=== PATIENT | male | born 1990 | race Caucasian/White ===

== ENCOUNTER 2024-09-23 10:57 | Inpatient (IN) | payer BC, SELFPAY ==
[2024-09-23] VITALS (24 sets, daily range): BP systolic 82–139; BP diastolic 50–93; PULSE 82–134; RESP 16–34; TEMP 36.8–37.6; O2SAT 92–100; BMI 25.1
--- NOTE | 2024-09-23 | ECHO_ITS ---
Patient Info Name: Kevin Dudley Age: 34 years : 1990 Gender: Male Ht: 72 in Wt: 187 lbs BSA: 2.08 m2 HR: 119 bpm BP: 120 / 84 mmHg Technical Quality: Fair Exam Date: 09/23/2024 4:37 PM Exam Location: Echo Lab Patient Status: Inpatient Admit Date: 09/23/2024 Staff Ordering Physician: Caron Jeronimo APRN [employer] Artisan: Stephanie Staples RDCS Attending Provider: Demarco Cordova MD Referring Physician: Phani ODOM; Exam Type: CA echo doppler color flow Study Info Indications I50.9 - Heart failure, unspecified Complete two-dimensional, color flow and Doppler transthoracic echocardiogram is performed. Summary 1. Technically difficult study with limited views. 2. Left ventricular chamber dimension is normal. 3. Left ventricular systolic function is normal, estimated at 50-55%. 4. Right ventricular systolic function is normal. 5. There is mild mitral valve regurgitation. 6. There is mild tricuspid valve regurgitation. 7. There is small posterior pericardial effusion. Left Ventricle Left ventricular chamber dimension is normal. Left ventricular systolic function is normal, estimated at 50-55%. There is no increased left ventricular wall thickness. Left ventricular septal wall motion is abnormal with septal motion related to bundle branch block. The left ventricular diastolic function is abnormal. Right Ventricle Right ventricular chamber dimension is normal. Right ventricular systolic function is normal. Left Atria Left atrial chamber dimension is normal. Right Atria Right atrial chamber dimension is normal. Atrial Septum Intact interatrial septum visualized by color flow imaging. Aortic Valve The aortic valve is not well visualized. There is no aortic valve stenosis. There is no aortic valve regurgitation. Pulmonic Valve The pulmonic valve is not well visualized. There is trace pulmonic regurgitation. Mitral Valve There is mild mitral valve regurgitation. Tricuspid Valve There is mild tricuspid valve regurgitation. Pericardium/Pleural There is small posterior pericardial effusion. Inferior Vena Cava Normal inferior vena cava with >50% collapse upon inspiration consistent with normal right atrial pressure, 3 mmHg. Aorta The aortic root size at the sinus of Valsalva is normal. Left Ventricular Outflow Tract Name Value Normal LVOT 2D LVOT Diameter 2.0 cm LVOT Doppler LVOT Peak Gradient 5 mmHg LVOT Mean Gradient 3 mmHg LVOT VTI 16 cm LVOT VTI/AV VTI Ratio 1.0 LVOT Stroke Volume 50 ml LVOT CO 5.1 l/min LVOT CI 2.5 l/min/m2 Pulmonic Valve Name Value Normal PV Doppler PV Peak Gradient 5 mmHg PV Regurgitation Doppler KS Peak End Diastolic Velocity 172 cm/s Mitral Valve Name Value Normal MV Doppler MV Decel [place] 678 cm/s2 MV PHT 36 ms MV Area (PHT) 6.1 cm2 4.0-5.0 MV Diastolic Function MV E Peak Velocity 84 cm/s MV A Peak Velocity 46 cm/s MV E/A 1.8 MV Decel Time 124 ms Tricuspid Valve Name Value Normal TV Regurgitation Doppler TR Peak Velocity 334 cm/s TR Peak Gradient 26 mmHg Estimated PAP/RSVP RA Pressure 3 mmHg <=5 PA Systolic Pressure 48 mmHg <36 RV Systolic Pressure 48 mmHg <36 Aorta Name Value Normal Ascending Aorta Ao Root Diameter (MM) 2.4 cm Ao Root Diam Index (MM) 1.1 cm/m2 Aortic Valve Name Value Normal AV Doppler AV Peak Velocity 123 cm/s AV Peak Gradient 6 mmHg AV Mean Gradient 3 mmHg AV VTI 17 cm AV Area (Cont Eq VTI) 3.0 cm2 >=3.0 AV Area (Cont Eq Madi) 2.9 cm2 AV Regurgitation 2D LVOT Area 3.1 cm2 Ventricles Name Value Normal LV Dimensions 2D/MM IVS Diastolic Thickness (2D) 0.8 cm 0.6-1.0 IVS Diastole Thickness (MM) 0.7 cm 0.6-1.0 LVID Diastole (2D) 4.6 cm 4.2-5.8 LVID Diastole (MM) 5.8 cm 4.2-5.8 LVIW Diastolic Thickness (2D) 0.9 cm 0.6-1.0 LVIW Diastolic Thickness (MM) 0.8 cm 0.6-1.0 LVID Systole (2D) 2.7 cm 2.5-4.0 LVID Systole (MM) 4.5 cm 2.5-4.0 LVOT Diameter 2.0 cm LV Mass (2D Cubed) 124.68 g 88.00-224.00 LV Mass Index (2D Cubed) 60 g/m2 49-115 Relative Wall Thickness (2D) 0.37 LV Mass (MM Cubed) 167.90 g 88.00-224.00 LV Mass Index (MM Cubed) 81 g/m2 49-115 Relative Wall Thickness (MM) 0.29 LV Fractional Shortening/Ejection Fraction 2D/MM LV Fractional Shortening (2D) 42 % 25-43 LV Fractional Shortening (MM) 22 % 25-43 LV EF (MM Teicholz) 44 % 52-72 LV EF (2D Teicholz) 73 % 52-72 LV Diastolic Volume (4C MOD) 108 ml LV EF (4C MOD) 57 % LV Diastolic Volume (2C MOD) 74 ml LV EF (2C MOD) 55 % LV Diastolic Volume (BP MOD) 92 ml 62-150 LV Diastolic Volume Index (BP MOD) 44 ml/m2 34-74 LV Systolic Volume (BP MOD) 41 ml 21-61 LV Systolic Volume Index (BP MOD) 19 ml/m2 11-31 LV EF (BP MOD) 56 % 52-72 LV Diastolic Length (4C) 8.9 cm LV Systolic Length (4C) 7.3 cm LV Stroke Volume (4C MOD) 62 ml Atria Name Value Normal LA Dimensions LA Dimension (MM) 3.9 cm 3.0-4.1 LA Volume (4C A-L) 36 ml LA Volume (BP A-L) 41 ml RA Dimensions RA Area (4C) 15.4 cm2 <=18.0 Report Signatures
--- NOTE | ~2024-09-23 | CT_ITS ---
EXAMINATION: CT abdomen w con DATE: 09/24/2024 13:33 INDICATION: Abdominal fluid collection. TECHNIQUE: Computed tomography (CT) of the abdomen was performed with 100 mL Omnipaque 350 intravenou s contrast. Automated exposure control and iterative reconstruction technique were employed. The dose -length product was 806.45 mGy-cm. COMPARISON: Chest CT 09/23/2024 FINDINGS: The visualized portions of the lung bases demonstrate moderate-sized pleural effusions and dependent atelectasis. There are groundglass opacities in left lower lobe and lingula. The heart size is normal. No pericardial effusion. The liver and spleen are normal. The gallbladder is normal in si ze. There is hypoenhancement of the tail of the pancreas. The adrenal glands and kidneys are normal. There are no dilated loops of bowel. There are extensive rim-enhancing collections in the retroperito neum and mesentery extending into the left paracardial fat. There is a moderate volume of ascites wit h peritoneal thickening and enhancement. There are changes of vertebroplasty at L1 and L3. There are changes of anterior fusion procedures at L2-L3 and L5-S1. There are changes of posterior fusion proce dure from L2 to at least L5. IMPRESSION: 1. 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 2. Moderate-sized pleural effusions. 3. Groundglass opacities in left lower lobe and lingula, consistent with pneumonia versus focal pulmo nary edema. Reviewed, dictated and finalized at location A. SKIMMER IMPRESSION: 1. 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 2. Moderate-sized pleural effusions. 3. Groundglass opacities in left lower lobe and lingula, consistent with pneumo rahel versus focal pulmonary edema.
--- NOTE | ~2024-09-23 | XR_ITS ---
EXAMINATION: [id number] DATE: 09/24/2024 10:31 INDICATION: Left pleural effusion status post thoracentesis. TECHNIQUE: A single frontal view of the chest was obtained. COMPARISON: Chest single view at 7:29 AM, chest CT 09/23/2024 FINDINGS: There is a small left pleural effusion. There are airspace opacities in the mid and lower l jacob zones. No pneumothorax. The heart size is normal. IMPRESSION: 1. Small left pleural effusion with improvement status post thoracentesis. 2. Airspace opacities in the mid and lower lung zones with improvement on the left, consistent with a telectasis versus pneumonia. Reviewed, dictated and finalized at location A. NDER WIND UP HELPER IMPRESSION: 1. Small left pleural effusion with improvement status post thoracentesis. 2. Airspace opacities in the mid and lower lung zones with improvement on the l eft, consistent with atelectasis versus pneumonia.
--- NOTE | ~2024-09-23 | XR_ITS ---
XR chest 1V portable Ordering provider: Opal Lowery MD History: 34 years Male with . low o2 sats, hx recent intubation/trach . Comparison: None. FINDINGS: MEDIASTINUM: The cardiac silhouette is slightly enlarged. Congestive alicia. LUNGS: No pneumothorax. Opacification in the left lower lobe suggestive of atelectasis versus pneumon ia with pleural effusion. Minimal opacification the right lower lobe. Bilateral interstitial thickeni ng. OTHER: No free air under the diaphragm. IMPRESSION: Cardiomegaly with cardiac decompensation and pulmonary edema. Bibasilar opacification suggestive of a telectasis versus pneumonia with left pleural effusion Reviewed, dictated and finalized at location A. N'S SOCCER COACH IMPRESSION: Cardiomegaly with cardiac decompensation and pulmonary edema. Bibasilar opacifi cation suggestive of atelectasis versus pneumonia with left pleural effusion
--- NOTE | ~2024-09-23 | US_ITS ---
EXAMINATION: US thoracentesis DATE: 09/24/2024 10:20 INDICATION: pleural effusion TECHNIQUE: The procedure and its risks, benefits, and alternatives were discussed with the patient. T he patient understood the risks and agreed to proceed. The skin was prepped and draped in sterile fas hion. 1% lidocaine was used for local anesthesia. Under ultrasound guidance, a 5 Fr catheter with tro dae was advanced into the left pleural effusion. Fluid was aspirated. The catheter was removed, and a dressing was applied. There were no immediate complications. FINDINGS: Ultrasound images demonstrate a left pleural effusion and the catheter within the fluid. IMPRESSION: 1. Successful ultrasound-guided thoracentesis yielding 900 mL of ely-colored fluid. Reviewed, dictated and finalized at location A. ENT SERVICES ADVISOR
--- NOTE | ~2024-09-23 | CT_ITS ---
Clinical Indication: Hypoxia, shortness of breath CT Scan of the Chest with Contrast: Technique: Contiguous sections were acquired throughout the chest after intravenous administration of 100 cc of Omnipaque 350. Dose reduction technique was used on this scan by utilizing automated expos ure control and iterative reconstruction technique. The dose-length product (DLP) was 438.94 mGy-cm. Findings: There is no evidence of any significant mediastinal, hilar or axillary lymphadenopathy. There is no f illing defect in the pulmonary arterial tree to suggest pulmonary embolus. There is no evidence of ao rtic dissection or aneurysm. No pericardial effusion. Probable epicardial cyst at the right inferior epicardial region. There are large bilateral pleural effusions, left greater than right. There is essentially complete b ilateral lower lobe atelectasis, as well as partial left upper lobe atelectasis and minimal dependent right upper lobe atelectatic change. There is focal groundglass opacity in the aerated anteromedial left upper lobe. Images through the upper abdomen reveal extensive heterogeneous fluid and infiltration in the mesente ry in the left upper quadrant and visualized upper abdomen.. Impression: No evidence of pulmonary embolus, aortic dissection, or aortic aneurysm. Large bilateral pleural effusions with extensive bilateral atelectasis, especially the lower lobes, a s detailed above. Extensive heterogeneous fluid in the upper abdomen, especially left upper quadrant, with extensive in filtration of the mesentery. Etiology is unclear, and is incompletely imaged on the current exam. Magdalene gnostic considerations could include severe pancreatitis versus other etiologies for peritoneal infla mmation and fluid. Carcinomatosis/neoplasm is also within the differential diagnosis. Correlate with any relevant clinical history an prior workup. Dedicated abdominal pelvic CT scan with contrast shoul d be strongly considered to further evaluate. Reviewed, dictated and finalized at [facility]. REGATIONAL CARE PASTOR Impression: No evidence of pulmonary embolus, aortic dissection, or aortic aneurysm. Large bilateral pleural effusions with extensive bilateral atelectasis, especia lly the lower lobes, as detailed above. Extensive heterogeneous fluid in the upper abdomen, especially left upper quadr ant, with extensive infiltration of the mesentery. Etiology is unclear, and is incompletely imaged on the current exam. Diagnostic considerations could includ e severe pancreatitis versus other etiologies for peritoneal inflammation and f luid. Carcinomatosis/neoplasm is also within the differential diagnosis. Correl ate with any relevant clinical history an prior workup. Dedicated abdominal pel mason CT scan with contrast should be strongly considered to further evaluate.
--- NOTE | ~2024-09-23 | XR_ITS ---
EXAMINATION: XR chest 1V portable DATE: 09/24/2024 07:46 INDICATION: Shortness of breath. TECHNIQUE: A single frontal view of the chest was obtained. COMPARISON: Chest single view 09/23/2024, chest CT 09/23/2024 FINDINGS: There is a large left pleural effusion. There are airspace opacities in right mid and lower lung zones and left lung. No pneumothorax. The heart size is normal. IMPRESSION: 1. Stable large left pleural effusion. 2. Stable airspace opacities in right mid and lower lung zones and left lung, consistent with atelect asis versus pneumonia. Reviewed, dictated and finalized at location A. ING SALES CONSULTANT IMPRESSION: 1. Stable large left pleural effusion. 2. Stable airspace opacities in right mid and lower lung zones and left lung, c onsistent with atelectasis versus pneumonia.
--- NOTE | 2024-09-23 11:15 | PC.NURSE ---
PT IS DECLINING TO HAVE ANY ADDITIONAL PROCEDURES COMPLETED UNTIL PHYSICIAN EXAM. IS OK WITH CXR AT THIS TIME.
--- NOTE | 2024-09-23 12:01 | ED_ITS ---
HPI - General Adult General Chief complaint: Unspecified Stated complaint: r/o PE Time Seen by Provider: 09/23/24 11:45 Source: patient, family and EMS Mode of arrival: EMS ([facility]) History of Present Illness HPI narrative: Patient presents with hypoxia appreciated this morning during vital signs. Facility is concerned for PE. Patient recently (5 days ago) admitted there for rehab. He has been in the hospital since June by report with history of necrotizing pancreatitis, encephalopathy, s/p trach placement and reversal/removal, and acute renal failure. Extubated 2 weeks ago. He denies any chest pain or shortness of breath, states he thinks everyone is making a big deal out of nothing. No fever, no cough. Denies edema. Not on anticoagulation per review of rehabilitation documentation. Related Data Home Medications Medication Instructions Recorded Confirmed acetaminophen 325 mg tablet 650 mg PO Q6H PRN Fever or Pain 09/18/24 09/23/24 (1-4) clonidine HCl 0.1 mg tablet 0.1 mg PO Q12H 09/18/24 09/23/24 folic acid 1 mg tablet 1 mg PO DAILY 09/18/24 09/23/24 hydroxyzine HCl 10 mg tablet 12.5 mg PO TID PRN Anxiety 09/18/24 09/23/24 insulin lispro 100 unit/mL See Protocol subcut USEASDIRECTD 09/18/24 09/23/24 subcutaneous solution lipase 10,500-protease 2 cap PO AC 09/18/24 09/23/24 35,500-amylase 61,500 unit capsule,delayed rel (Pancreaze) melatonin 3 mg tablet 9 mg PO HS PRN Insomnia 09/18/24 09/23/24 metformin 500 mg tablet 500 mg PO BIDWM 09/18/24 09/23/24 metoprolol tartrate 37.5 mg tablet 37.5 mg PO Q12H 09/18/24 09/23/24 oxycodone 5 mg tablet 5 mg PO Q4H PRN Pain (5-10) 09/18/24 09/23/24 pantoprazole 40 mg tablet,delayed 40 mg PO DAILY 09/18/24 09/23/24 release sennosides 8.6 mg tablet 8.6 mg PO DAILY 09/18/24 09/23/24 thiamine HCl (vitamin B1) 100 mg 100 mg PO DAILY 09/18/24 09/23/24 tablet enoxaparin 40 mg/0.4 mL 40 mg subcut DAILY 09/23/24 09/23/24 subcutaneous syringe gabapentin 300 mg capsule 300 mg PO TID 09/23/24 09/23/24 Allergies Allergy/AdvReac Type Severity Reaction Status Date / Time No Known Allergies Allergy Verified 09/23/24 18:52 [facility] Past Medical History Medical History (Updated 09/23/24 @ 21:09 by Opal Lowery MD) Necrotizing pancreatitis Social History Social History (Updated 09/23/24 @ 12:09 by Opal Lowery MD) Smoking status: Never smoker Alcohol intake: former Drinks per week: 7 Substance use: current Substance use type: prescription drug Other substance usage details: prescribed opiates Last use: last drink in June Do You Feel Safe in your Home?: Yes Lack of Transportation: No Lack of Food: Never True Current Housing: I Have Housing Concerned About Future Housing: No Difficulty Paying Gas/Electric Bills: No Difficulty Paying for Meds: No Currently Unemployed: No Education: High School Diploma/GED Difficulty w/ Childcare or Family Care: No Additional living arrangements comments: Currently at [facility] Spiritual care concerns: No Exam Narrative: GENERAL: Well-appearing, well-nourished, and in no acute distress. HEAD: Normocephalic, atraumatic. EYES: Non injected, non icteric ENT: Nares clear, no rhinorrhea or epistaxis. NECK: Supple. Trach scar. CHEST: Speaking in full sentences. No respiratory distress though tachypneic. Lungs clear to auscultation bilaterally. HEART: Regular rate and rhythm. ABDOMEN: Soft, nondistended. EXTREMITIES: Normal range of motion. No lower extremity edema. SKIN: Warm, dry, no rash. NEURO: No focal deficits. Alert and oriented x3. PSYCH: Normal mood and affect. Course Vital Signs Vital signs: Vital Signs Temperature 98.2 F 09/23/24 10:58 Pulse Rate 82 09/23/24 10:58 Respiratory Rate 28 H 09/23/24 10:58 Blood Pressure 82/50 L 09/23/24 10:58 Pulse Oximetry 92 09/23/24 10:58 Oxygen Delivery Room Air 09/23/24 10:58 Temperature 98.8 F 09/23/24 19:58 Pulse Rate 131 H 09/23/24 20:00 Respiratory Rate 18 09/23/24 19:58 Blood Pressure 134/89 09/23/24 19:58 Pulse Oximetry 97 09/23/24 20:00 Oxygen Delivery Nasal Cannula 09/23/24 20:00 Oxygen Flow Rate 2 09/23/24 20:00 Medical Decision Making MDM Narrative Medical decision making narrative: 34yo male with history necrotizing pancreatitis, encephalopathy, former trach dependent s/p reversal, and acute renal failure presents with hypoxia. Facility concerned for PE. In the emergency department he is afebrile with vital signs notable for hypotension, hypoxia which responded to application of nasal cannula at 2 l iters/minute, and tachypnea. Hypotension also improves. Lactic acid normal. Heart failure evident on labs and CXR and confirmed on CT which also shows b/l pleura effusions. No PE. 1 dose Lasix ordered. Patient to be admitted. Discussed findings with patient and family at bedside. Noted that patient likely to require diuresis and possible thoracentesis. He remains hemodynamically stable on nasal cannula, saturating appropriately with improved rate of breathing. Discussed admission with APPLIED BIOLOGY PROFESSOR Hospitalist Caron. Differential Diagnosis Differential Diagnosis: effusion as sequelae of pancreatitis, pulmonary embolism, acute heart failure, ACS, acute viral syndrome; pneumonia Vital Signs Vital Signs: Vital Signs Temperature 98.2 F 09/23/24 10:58 Pulse Rate 82 09/23/24 10:58 Respiratory Rate 28 H 09/23/24 10:58 Blood Pressure 82/50 L 09/23/24 10:58 Pulse Oximetry 92 09/23/24 10:58 Oxygen Delivery Room Air 09/23/24 10:58 Temperature 98.8 F 09/23/24 19:58 Pulse Rate 131 H 09/23/24 20:00 Respiratory Rate 18 09/23/24 19:58 Blood Pressure 134/89 09/23/24 19:58 Pulse Oximetry 97 09/23/24 20:00 Oxygen Delivery Nasal Cannula 09/23/24 20:00 Oxygen Flow Rate 2 09/23/24 20:00 Lab Data Lab results reviewed: Yes I reviewed the patient's lab results. Lab results narrative: Leukocytosis, macrocytic anemia, thrombocytosis; all have been previously seen in our chronic/stable. Alkaline phosphatase elevation, hypoalbuminemia 09/23/24 12:25 09/23/24 12:25 Labs: Lab Results 09/23/24 09/23/24 09/23/24 Range/Units 12:22 12:23 12:24 WBC (4.5-10.0) K/mm3 RBC (4.6-6.20) M/mm3 Hgb (14.0-18.0) g/dL Hct (42.0-52.0) % MCV (80-100) fl MCH (26-34) pg MCHC (32-36) g/dl RDW (11.5-14.5) % Plt Count (150-375) k/mm3 MPV (7.4-10.4) fl Immature Gran % (Auto) (0-0.5) % Neut % (Auto) (45.5-73.1) % Lymph % (Auto) (18.3-44.2) % Fountain % (Auto) (2.6-8.5) % Eos % (Auto) (0-4.4) % Baso % (Auto) (0.2-1.2) % Lymph # (Auto) (0.9-3.2) K/mm3 Fountain # (Auto) (0.1-0.6) K/mm3 Eos # (Auto) (0-0.3) K/mm3 Baso # (Auto) (0.0-0.1) K/mm3 Abs Immat Gran (auto) (0.00-0.031) K/mm3 Absolute Neuts (auto) (1.3-6.7) K/mm3 Absolute Nucleated RBC (0.0-0.012) K/mm3 Nucleated RBC % (0.0-0.2) % PT 14.4 (11.1-14.7) Seconds INR 1.1 APTT 31.8 (22.3-36.8) Seconds Sodium (137-145) mmol/L Potassium (3.4-5.0) mmol/L Chloride (98-107) mmol/L Carbon Dioxide (22-30) mmol/L Anion Gap (4-12) mmol/L BUN (9-20) mg/dL Creatinine (0.7-1.3) mg/dL Estim Creat Clear Calc ml/min Estimated GFR (59 - ) Glucose (65-110) mg/dL Lactic Acid (0.7-2.0) mmol/L Calcium (8.4-10.2) mg/dL Total Bilirubin (0.2-1.3) mg/dL AST (17-59) U/L ALT (6-50) U/L Alkaline Phosphatase (38-126) U/L Troponin I (0.000-0.034) ng/mL NT-Pro-B Natriuret Pep (19.9-100) pg/mL Total Protein (6.3-8.2) g/dL Albumin (3.5-5.1) g/dL Lipase 28 (23-300) U/L Influenza A (RT-PCR) Negative (Negative) Influenza B (RT-PCR) Negative (Negative) RSV (RT-PCR) Negative (Negative) SARS-CoV-2 RNA (RT-PCR) Negative (Negative) 09/23/24 09/23/24 Range/Units 12:25 12:26 WBC 14.2 H (4.5-10.0) K/mm3 RBC 2.72 L (4.6-6.20) M/mm3 Hgb 8.3 L (14.0-18.0) g/dL Hct 27.4 L (42.0-52.0) % MCV 100.7 H (80-100) fl MCH 30.5 (26-34) pg MCHC 30.3 L (32-36) g/dl RDW 16.0 H (11.5-14.5) % Plt Count 578 H (150-375) k/mm3 MPV 9.3 (7.4-10.4) fl Immature Gran % (Auto) 2.2 H (0-0.5) % Neut % (Auto) 72.8 (45.5-73.1) % Lymph % (Auto) 12.2 L (18.3-44.2) % Fountain % (Auto) 9.1 H (2.6-8.5) % Eos % (Auto) 2.4 (0-4.4) % Baso % (Auto) 1.3 H (0.2-1.2) % Lymph # (Auto) 1.73 (0.9-3.2) K/mm3 Fountain # (Auto) 1.3 H (0.1-0.6) K/mm3 Eos # (Auto) 0.3 (0-0.3) K/mm3 Baso # (Auto) 0.2 H (0.0-0.1) K/mm3 Abs Immat Gran (auto) 0.31 H (0.00-0.031) K/mm3 Absolute Neuts (auto) 10.3 H (1.3-6.7) K/mm3 Absolute Nucleated RBC 0.000 (0.0-0.012) K/mm3 Nucleated RBC % 0.0 (0.0-0.2) % PT (11.1-14.7) Seconds INR APTT (22.3-36.8) Seconds Sodium 138 (137-145) mmol/L Potassium 4.2 (3.4-5.0) mmol/L Chloride 97 L (98-107) mmol/L Carbon Dioxide 36 H (22-30) mmol/L Anion Gap 5 (4-12) mmol/L BUN 8 L (9-20) mg/dL Creatinine 0.70 (0.7-1.3) mg/dL Estim Creat Clear Calc 138 ml/min Estimated GFR > 60 (59 - ) Glucose 90 (65-110) mg/dL Lactic Acid 1.3 (0.7-2.0) mmol/L Calcium 9.4 (8.4-10.2) mg/dL Total Bilirubin 1.0 (0.2-1.3) mg/dL AST 24 (17-59) U/L ALT 35 (6-50) U/L Alkaline Phosphatase 229 H (38-126) U/L Troponin I < 0.012 (0.000-0.034) ng/mL NT-Pro-B Natriuret Pep 2300 H (19.9-100) pg/mL Total Protein 7.0 (6.3-8.2) g/dL Albumin 3.2 L (3.5-5.1) g/dL Lipase (23-300) U/L Influenza A (RT-PCR) (Negative) Influenza B (RT-PCR) (Negative) RSV (RT-PCR) (Negative) SARS-CoV-2 RNA (RT-PCR) (Negative) ABG Data ABG results: 09/23/24 12:06 Puncture Site Right radial ABG pH 7.321 L ABG pCO2 65.8 H* ABG pO2 89.2 ABG PO2/FiO2 Ratio 3.19 ABG HCO3 33.2 H ABG O2 Saturation 95.9 ABG O2 Content 12.6 L ABG Base Excess 5.9 A-a Gradient 32.8 Oxyhemoglobin 95.5 Total Hemoglobin 9.3 L O2 Delivery Device Nasal cannula O2 Liters/Min 2.0 FiO2 28 Attestation: I personally reviewed and interpreted this ABG as follows: Interpretation: respiratory acidosis with metabolic alkalosis Imaging Data Radiologist's impression: Impressions Chest X-Ray 09/23/24 11:41 IMPRESSION: Cardiomegaly with cardiac decompensation and pulmonary edema. Bibasilar opacification suggestive of atelectasis versus pneumonia with left pleural effusion Chest CTA 09/23/24 13:29 Impression: No evidence of pulmonary embolus, aortic dissection, or aortic aneurysm. Large bilateral pleural effusions with extensive bilateral atelectasis, especially the lower lobes, as detailed above. Extensive heterogeneous fluid in the upper abdomen, especially left upper quadrant, with extensive infiltration of the mesentery. Etiology is unclear, and is incompletely imaged on the current exam. Diagnostic considerations could include severe pancreatitis versus other etiologies for peritoneal inflammation and fluid. Carcinomatosis/neoplasm is also within the differential diagnosis. Correlate with any relevant clinical history an prior workup. Dedicated abdominal pelvic CT scan with contrast should be strongly considered to further evaluate. ECG Data EKG #1: Attestation: I personally reviewed and interpreted this ECG as follows: ECG completion date: 09/23/24 ECG completion time: 12:14 Prior ECG tracings: available for review (no prior in EMR but one dated 09/18/24 in chart: Sinus tachycardia at 120 beats per minute.) Interpretation: Sinus tachycardia at a rate of 104 beats per minute. KS interval 177. QRS 88. QT/QTC 313/373. Good R-wave progression across the precordial leads. No T-wave inversions. Discharge Plan Discharge Clinical Impression: Bilateral pleural effusion, Hypoxia, Leukocytosis, Anemia, macrocytic, Thrombocytosis, Alkaline phosphatase elevation, Hypoalbuminemia, Acute heart failure Patient Disposition: Still a Patient Condition: Stable
--- NOTE | 2024-09-23 12:02 | ECG_ITS ---
Test Date: 2024-09-23 12:14:57 Measurements Intervals [place] Rate: 104 P: 35 ID: [id number] QRS: 43 QRSD: 88 T: 40 QT: 313 QTc: 412 Interpretive Statements SINUS TACHYCARDIA POSSIBLE LEFT ATRIAL ENLARGEMENT NONSPECIFIC T-WAVE ABNORMALITY- HIGH LATERAL LEADS BASELINE ARTIFACT- I, III, AVL, V6 BORDERLINE ECG No previous ECG available for comparison Electronically Signed On 09-23-2024 13:08:32 [facility] by Alejandro Colin D.O.
[2024-09-23 12:33] LABS: Basophils Absolute Auto 0.2 K/mm3 (0.0-0.1); Basophils Percent Auto 1.3 % (0.2-1.2); Eosinophils Absolute Auto 0.3 K/mm3 (0-0.3); Eosinophils Percent Auto 2.4 % (0-4.4); Hematocrit 27.4 % (42.0-52.0); Hemoglobin 8.3 g/dL (14.0-18.0); Immature Granulocyte Absolute 0.31 K/mm3 (0.00-0.031); Immature Granulocyte Percent A 2.2 % (0-0.5); Lymphocytes Absolute Auto 1.73 K/mm3 (0.9-3.2); Lymphocytes Percent Auto 12.2 % (18.3-44.2); Mean Corpuscular HGB Conc 30.3 g/dl (32-36); Mean Corpuscular Hemoglobin 30.5 pg (26-34); Mean Corpuscular Volume 100.7 fl (80-100); Mean Platelet Volume 9.3 fl (7.4-10.4); Monocytes Absolute Auto 1.3 K/mm3 (0.1-0.6); Monocytes Percent Auto 9.1 % (2.6-8.5); Neutrophils Absolute Auto 10.3 K/mm3 (1.3-6.7); Neutrophils Percent Auto 72.8 % (45.5-73.1); Platelet Count Result 578 k/mm3 (150-375); Red Blood Count 2.72 M/mm3 (4.6-6.20); White Blood Count 14.2 K/mm3 (4.5-10.0)
[2024-09-23 12:42] LABS: Alanine Aminotransferase 35 U/L (6-50); Albumin Level 3.2 g/dL (3.5-5.1); Alkaline Phosphatase 229 U/L (38-126); Anion Gap 5 mmol/L (4-12); Aspartate Amino Transferase 24 U/L (17-59); Blood Urea Nitrogen 8 mg/dL (9-20); Calcium 9.4 mg/dL (8.4-10.2); Carbon Dioxide 36 mmol/L (22-30); Chloride 97 mmol/L (98-107); Estimated CRCL calculation 138 ml/min; Estimated Glomerular Filt Rate > 60; Glucose 90 mg/dL (65-110); Potassium 4.2 mmol/L (3.4-5.0); Sodium 138 mmol/L (137-145)
[2024-09-23 12:43] LABS: Alveolar/Arterial O2 Gradient 32.8 mmHg; Base Excess ABG 5.9 mEq/l (+/-2.0); Fractional Inspired Oxygen 28 %; HCO3 ABG 33.2 mEq/l (22.0-26.0); Oxygen Content ABG 12.6 %vol (16.0-22.0); Oxygen Saturation ABG 95.9 % (95.0-100.0); Oxyhemoglobin 95.5 % THb (90.0-100.0); PO2 ABG 89.2 mmHg (80.0-100.0); PO2 FiO2 Ratio Arterial Blood 3.19 %; Total Hemoglobin 9.3 g/dL (12.0-18.0); pH ABG 7.321 (7.350-7.450)
[2024-09-23 12:44] LABS: Lactic Acid Reflex 1.3 mmol/L (0.7-2.0)
[2024-09-23 12:45] LABS: Modified Allen's Test Pass; PCO2 ABG 65.8 mmHg (35.0-45.0); Site Drawn RIGHT RADIAL
[2024-09-23 12:46] LABS: Device NASAL CANNULA
[2024-09-23 12:46] LABS: INR 1.1; Partial Thromboplastin Time 31.8 Seconds (22.3-36.8); Prothrombin Time 14.4 Seconds (11.1-14.7)
[2024-09-23 12:51] LABS: NT Pro B Type Natriuretic Pept 2300 pg/mL (19.9-100)
[2024-09-23 12:54] LABS: Troponin I < 0.012 ng/mL (0.000-0.034)
[2024-09-23 13:10] LABS: Influenza A QL RT-PCR Negative (Negative); Influenza B QL RT-PCR Negative (Negative); RSV RNA, RT-PCR Negative (Negative); SARS-CoV-2 RNA PCR Negative (Negative)
[2024-09-23 14:03] LABS: Lipase 28 U/L (23-300)
--- NOTE | 2024-09-23 14:40 | PM.IMHP ---
H&P: HPI History of Present Illness Date/Time: 09/23/24 14:40 Chief Complaint: Hypoxia Narrative: 34-year-old male with history of alcohol abuse, seizures necrotizing pancreatitis sent in from acute rehab for hypoxia. Patient denies complaints of shortness of breath. Patient states that he has no complaints and that he was doing well at rehab however today when they took his vitals are within knows that he was hypoxic into the 80s and sent him to the emergency room for further evaluation. Leukocytosis at 14.2, hemoglobin 8.3, on ABG pCO2 is 65.8, bicarb 33.2, AST and ALT within normal limits, alkaline phosphate at 292, BNP at 2300, respiratory panel negative. CTA of the chest shows no pulmonary embolism, large bilateral pleural effusions left greater than right with extensive atelectasis. Chest x-ray shows cardiomegaly with cardiac decompensation and pulmonary edema. Patient given Lasix in the emergency room. Patient had a prolonged hospital stay for alcohol withdrawals and necrotizing pancreatitis. Patient was admitted on 07/12/2024 at [facility] for seizures related to alcohol withdrawals. On 2023 patient was transferred to [facility] for higher level of care. He came encephalopathic and was intubated on 07/15/2024, a tracheostomy placed on 07/25 and was decannulated on 09/04/2024. On 08/30/2024 the patient was found positive for C diff. During the hospital stay he did have acute kidney failure and had hemodialysis. He was discharged to [facility] on 09/18/2024. Review of Systems Review of Systems: 12 systems were reviewed and are negative except for as per HPI. [facility] Past Medical History Medical History (Updated 09/23/24 @ 21:09 by Opal Lowery MD) Necrotizing pancreatitis Social History Social History (Updated 09/23/24 @ 12:09 by Opal Lowery MD) Smoking status: Never smoker Alcohol intake: former Drinks per week: 7 Substance use: current Substance use type: prescription drug Other substance usage details: prescribed opiates Last use: last drink in June Do You Feel Safe in your Home?: Yes Lack of Transportation: No Lack of Food: Never True Current Housing: I Have Housing Concerned About Future Housing: No Difficulty Paying Gas/Electric Bills: No Difficulty Paying for Meds: No Currently Unemployed: No Education: High School Diploma/GED Difficulty w/ Childcare or Family Care: No Additional living arrangements comments: Currently at [facility] Spiritual care concerns: No Meds Home Medications and Allergies Home Medications Medication Instructions Recorded Confirmed Type acetaminophen 325 mg tablet 650 mg PO Q6H PRN Fever or Pain 09/18/24 09/23/24 History (1-4) clonidine HCl 0.1 mg tablet 0.1 mg PO Q12H 09/18/24 09/23/24 History folic acid 1 mg tablet 1 mg PO DAILY 09/18/24 09/23/24 History hydroxyzine HCl 10 mg tablet 12.5 mg PO TID PRN Anxiety 09/18/24 09/23/24 History insulin lispro 100 unit/mL See Protocol subcut USEASDIRECTD 09/18/24 09/23/24 History subcutaneous solution lipase 10,500-protease 2 cap PO AC 09/18/24 09/23/24 History 35,500-amylase 61,500 unit capsule,delayed rel (Pancreaze) melatonin 3 mg tablet 9 mg PO HS PRN Insomnia 09/18/24 09/23/24 History metformin 500 mg tablet 500 mg PO BIDWM 09/18/24 09/23/24 History metoprolol tartrate 37.5 mg tablet 37.5 mg PO Q12H 09/18/24 09/23/24 History oxycodone 5 mg tablet 5 mg PO Q4H PRN Pain (5-10) 09/18/24 09/23/24 History pantoprazole 40 mg tablet,delayed 40 mg PO DAILY 09/18/24 09/23/24 History release sennosides 8.6 mg tablet 8.6 mg PO DAILY 09/18/24 09/23/24 History thiamine HCl (vitamin B1) 100 mg 100 mg PO DAILY 09/18/24 09/23/24 History tablet enoxaparin 40 mg/0.4 mL 40 mg subcut DAILY 09/23/24 09/23/24 History subcutaneous syringe gabapentin 300 mg capsule 300 mg PO TID 09/23/24 09/23/24 History Allergies Allergy/AdvReac Type Severity Reaction Status Date / Time No Known Allergies Allergy Verified 09/23/24 18:52 Vital Signs Vital Signs - 24 hr 09/23/24 10:58 09/23/24 11:00 09/23/24 11:15 Temperature 98.2 F Pulse Rate 82 87 Respiratory Rate 28 H 30 H Blood Pressure 82/50 L 88/59 L Pulse Oximetry 92 92 Oxygen Delivery Room Air Room Air Oxygen Flow Rate 09/23/24 11:15 09/23/24 11:51 09/23/24 12:01 Temperature Pulse Rate 111 H 114 H Respiratory Rate 34 H 30 H Blood Pressure 108/72 109/73 Pulse Oximetry 100 100 100 Oxygen Delivery Nasal Cannula Oxygen Flow Rate 2 09/23/24 12:23 09/23/24 12:31 09/23/24 12:46 Temperature Pulse Rate 109 H 109 H 109 H Respiratory Rate 30 H 32 H 32 H Blood Pressure 107/69 111/70 108/83 Pulse Oximetry 100 100 99 Oxygen Delivery Oxygen Flow Rate 09/23/24 13:43 09/23/24 13:46 09/23/24 14:01 Temperature Pulse Rate 115 H 113 H 102 H Respiratory Rate 32 H 32 H 33 H Blood Pressure 109/81 107/76 112/83 Pulse Oximetry 98 99 98 Oxygen Delivery Oxygen Flow Rate Exam Narrative: General: well appearing, appears stated age. HEENT: normocephalic, atraumatic. Mucous membranes moist. EOMI, PERRLA, bilateral sclera anicteric, no conjunctival injection. Neck supple without JVD, lymphadenopathy, or bruit. Respiratory: Shallow, tachypneic clear,. No rales/rhonic/wheezes. Cardiovascular: Tachycardic Regular rate and rhythm, normal S1-S2 upon ascultation. No murmurs, rubs, or clicks. PMI is nondisplaced, capillary refill less than 3 second. Abdomen: Soft, round, no pulsatile masses, nondistended and nontender. No rebound, no guarding. No CVA tenderness, no hepatosplenomegaly. Bowel sounds present to all four quadrants. No high pitch or tinkling sounds, resonant to percussion. Extremities: No cyanosis, clubbing, or edema present. Pulses are palpable 2/2. Active ROM to all four extremities. Neuro: Alert and orientated x 4. PERRLA. Cranial nerves 2-12 intact without focal deficit. Skin: Warm, dry, and intact, without rash, erythema, or lesion. Psych: pleasant, cooperative, normal speech, normal affect, no hallucinations, no dysarthia H&P: Results Labs Labs: Short CBC 09/23/24 Range/Units 12:25 WBC 14.2 H (4.5-10.0) K/mm3 Hgb 8.3 L (14.0-18.0) g/dL Hct 27.4 L (42.0-52.0) % Plt Count 578 H (150-375) k/mm3 BMP 09/23/24 12:25 Sodium 138 Potassium 4.2 Chloride 97 L Carbon Dioxide 36 H BUN 8 L Creatinine 0.70 Glucose 90 Calcium 9.4 Cardiac Enzymes 09/23/24 Range/Units 12:25 Troponin I < 0.012 (0.000-0.034) ng/mL Liver Function 09/23/24 Range/Units 12:25 Total Bilirubin 1.0 (0.2-1.3) mg/dL AST 24 (17-59) U/L ALT 35 (6-50) U/L Alkaline Phosphatase 229 H (38-126) U/L Albumin 3.2 L (3.5-5.1) g/dL Assessment and Plan Assessment and plan (1) Bilateral pleural effusion: Code(s): J90 - Pleural effusion, not elsewhere classified Status: Acute Assessment and Plan: large bilateral pleural effusions, left greater than right. Ultrasound-guided thoracentesis tomorrow, patient received Lovenox at 10:00 a.m. and needs a 12 hour washout. NPO at midnight Okay for diet now (2) Acute heart failure: Code(s): I50.9 - Heart failure, unspecified Status: Acute Assessment and Plan: 40 IV Lasix x1 in ED Cardiology consult pending recommendations Echocardiogram pending Cardiomegaly on chest x-ray 1800 fluid restriction, and low-sodium diet (3) Hypoxia: Code(s): R09.02 - Hypoxemia Status: Acute Assessment and Plan: Secondary to above Wean oxygen as able (4) Leukocytosis: Code(s): D72.829 - Elevated white blood cell count, unspecified Status: Acute Assessment and Plan: Tachypneic and tachycardic -sepsis versus large pleural effusions Chest CT negative for pneumonia, no signs of soft tissue infection UA pending Blood cultures pending Lactic acid 2.2 No fluid bolus due to patient being fluid overloaded Tachypnea and tachycardia are most likely due to the large pleural effusions the patient has patient hard for him to breathe however he does meet sepsis protocol will start empiric antibiotics, no infectious source identified IV Zosyn for possible abdominal infection (5) Anemia, macrocytic: Code(s): D53.9 - Nutritional anemia, unspecified Status: Acute Assessment and Plan: Nutritional supplements ordered No signs of acute bleeding (6) Necrotizing pancreatitis: Code(s): K85.91 - Acute pancreatitis with uninfected necrosis, unspecified Status: Inactive Assessment and Plan: Improving Quality VTE Prophylaxis VTE prophylaxis: mechanical ordered and pharmacologic ordered Hospitalist [facility] Advance Care Plan I have confirmed that the patient's Advanced Care Plan is present, code status is documented, or surrogate decision maker is listed in patient medical record.: Yes
[2024-09-23] MEDS: FUROSEMIDE INJ 40 MG/4 ML VIAL IV PUSH (14:49)
--- NOTE | 2024-09-23 18:01 | ADMGEN ---
This patient, Kevin Dudley, was admitted to Medical Room 342-01. Patient/family oriented to hospital policies and general routines including ID bracelet, bed and alarms, visiting hours, pain management, procedures, bathroom and other care routines, personal items, smoking policy, room service/diet, and visiting hours. Information on how to activate the Rapid Response Team has been discussed. Patient/Family are encouraged to report perceived risks to care and to ask questions if they do not understand what they are told or what they should do.
--- NOTE | 2024-09-23 18:55 | PC.NURSE ---
pt on tele running sinus tach in the 120s/130s. admitting hospitalist Caron Jeronimo called and voicemail left.
--- NOTE | 2024-09-23 19:29 | PC.NURSE ---
Hospitalist Caron Jeronimo contacted and I reported my concerns of his tachycardia in 120/130s, shallow rapid respirations in the 30s, 99.1 temp, elevated WBC count.
[2024-09-23 20:27] LABS: Lactic Acid Reflex 2.2 mmol/L (0.7-2.0)
[2024-09-23] MEDS: PIPERACILLN/TAZ 3.375GM/NS50ML 3.375 GM/50 ML BAG IVPB (22:36)
[2024-09-23 23:10] LABS: Reflex Lactic Acid Yes or No Add Lactic
[2024-09-24] VITALS (21 sets, daily range): BP systolic 114–139; BP diastolic 80–99; PULSE 104–142; RESP 15–32; TEMP 36.6–38.3; O2SAT 90–100
[2024-09-24 00:14] LABS: Lactic Acid 1.9 mmol/L (0.7-2.0)
[2024-09-24 01:24] LABS: Glucose Point of Care 149 mg/dl (65-105)
[2024-09-24] MEDS: PIPERACILLN/TAZ 3.375GM/NS50ML 3.375 GM/50 ML BAG IVPB (04:54)
[2024-09-24 05:45] LABS: Glucose Point of Care 129 mg/dl (65-105)
[2024-09-24 05:50] LABS: Basophils Absolute Auto 0.2 K/mm3 (0.0-0.1); Eosinophils Absolute Auto 0.3 K/mm3 (0-0.3); Eosinophils Percent Auto 1.9 % (0-4.4); Hematocrit 28.7 % (42.0-52.0); Hemoglobin 8.8 g/dL (14.0-18.0); Immature Granulocyte Absolute 0.32 K/mm3 (0.00-0.031); Immature Granulocyte Percent A 2.2 % (0-0.5); Lymphocytes Absolute Auto 1.18 K/mm3 (0.9-3.2); Lymphocytes Percent Auto 8.2 % (18.3-44.2); Mean Corpuscular HGB Conc 30.7 g/dl (32-36); Mean Corpuscular Hemoglobin 30.4 pg (26-34); Mean Corpuscular Volume 99.3 fl (80-100); Mean Platelet Volume 8.9 fl (7.4-10.4); Monocytes Percent Auto 7.1 % (2.6-8.5); Neutrophils Absolute Auto 11.5 K/mm3 (1.3-6.7); Neutrophils Percent Auto 79.6 % (45.5-73.1); Platelet Count Result 518 k/mm3 (150-375); Red Blood Count 2.89 M/mm3 (4.6-6.20); Red Cell Distribution Width 15.6 % (11.5-14.5); White Blood Count 14.4 K/mm3 (4.5-10.0)
[2024-09-24 06:01] LABS: Alanine Aminotransferase 34 U/L (6-50); Albumin Level 3.2 g/dL (3.5-5.1); Alkaline Phosphatase 237 U/L (38-126); Anion Gap 5 mmol/L (4-12); Aspartate Amino Transferase 25 U/L (17-59); Blood Urea Nitrogen 7 mg/dL (9-20); Calcium 9.1 mg/dL (8.4-10.2); Carbon Dioxide 38 mmol/L (22-30); Chloride 94 mmol/L (98-107); Estimated CRCL calculation 122 ml/min; Estimated Glomerular Filt Rate > 60; Glucose 129 mg/dL (65-110); Potassium 3.7 mmol/L (3.4-5.0); Sodium 137 mmol/L (137-145)
[2024-09-24 06:06] LABS: INR 1.1; Prothrombin Time 14.2 Seconds (11.1-14.7)
[2024-09-24 06:08] LABS: Partial Thromboplastin Time 30.7 Seconds (22.3-36.8)
[2024-09-24] MEDS: ACETAMINOPHEN 325 MG TABLET 650 MG PO ×2 (06:25→16:27)
--- NOTE | 2024-09-24 07:18 | ECG_ITS ---
Test Date: 2024-09-24 07:28:42 Measurements Intervals [place] Rate: 126 P: 49 CT: 175 QRS: 49 QRSD: 98 T: 53 QT: 400 QTc: 580 Interpretive Statements SINUS TACHYCARDIA NONSPECIFIC T-WAVE ABNORMALITY- DIFFUSE LEADS ABNORMAL ECG Compared to ECG 09/23/2024 12:14:57 HEART RATE HAS INCREASED Electronically Signed On 09-24-2024 07:53:21 CUPOLA MELTING SUPERVISOR by Alejandro Colin D.O.
[2024-09-24] MEDS: FUROSEMIDE INJ 40 MG/4 ML VIAL IV PUSH (07:37)
[2024-09-24 07:38] LABS: Alveolar/Arterial O2 Gradient 39.8 mmHg; Base Excess ABG 10.6 mEq/l (+/-2.0); Fractional Inspired Oxygen 28 %; HCO3 ABG 37.9 mEq/l (22.0-26.0); Oxygen Content ABG 12.4 %vol (16.0-22.0); Oxygen Saturation ABG 94.4 % (95.0-100.0); Oxyhemoglobin 94.7 % THb (90.0-100.0); PO2 ABG 77.7 mmHg (80.0-100.0); PO2 FiO2 Ratio Arterial Blood 2.77 %; Total Hemoglobin 9.2 g/dL (12.0-18.0); pH ABG 7.354 (7.350-7.450)
[2024-09-24 07:41] LABS: Lactic Acid Reflex 1.2 mmol/L (0.7-2.0)
[2024-09-24 07:41] LABS: Device NON-INVASIVE VENT; Modified Allen's Test Pass; Site Drawn RIGHT RADIAL
--- NOTE | 2024-09-24 07:41 | PM.IMPN ---
Progress Note: A&P Assessment and Plan (1) Sepsis: Code(s): A41.9 - Sepsis, unspecified organism Status: Acute Assessment and Plan: Meets SIRS criteria: HR, RR, lactic, WBC - lactic acid: 2.2 > 1.9 > 1.2 - Patient did not receive sepsis bolus on admission, likely due to severe effusion. - He remains tachycardic into the 130s likely due to ongoing infection, given albumin 25% x1. - suspected source: pneumonia vs necrotizing pancreatitis - blood cultures drawn on 09/23: pending - Antibiotics: vancomycin, cefepime, flagyl - UA non concerning for infection - CXR 09/23: Cardiomegaly with cardiac decompensation and pulmonary edema. Bibasilar opacification suggestive of atelectasis versus pneumonia with left pleural effusion - Chest CTA 09/23: No evidence of pulmonary embolus, aortic dissection, or aortic aneurysm. Large bilateral pleural effusions with extensive bilateral atelectasis, especially the lower lobes, as detailed above. Extensive heterogeneous fluid in the upper abdomen, especially left upper quadrant, with extensive infiltration of the mesentery. Etiology is unclear, and is incompletely imaged on the current exam. Diagnostic considerations could include severe pancreatitis versus other etiologies for peritoneal inflammation and fluid. Carcinomatosis/neoplasm is also within the differential diagnosis. - Abdomen/pelvis CT 1. 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 2. Moderate-sized pleural effusions. 3. Groundglass opacities in left lower lobe and lingula, consistent with pneumonia versus focal pulmonary edema. 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 He was transferred from [facility] to [facility]. He was treated for necrotizing pancreatitis and peripancreatic fluid collection, septic shock (septicemia) requiring broad spectrum antibiotics, progressive encephalopathy requiring intubation for respiratory failure on 07/15/24. A tracheostomy was placed 07/25/24. He was transferred to higher level of care at [facility] on 08/04/24, 08/23 Patient admitted to [facility]; for ventilator weaning. He has since been decannulated and undergoing therapy at rehab. - Antibiotics: vancomycin, cefepime, Flagyl - CT abdomen/pelvis: 1. 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 2. Moderate-sized pleural effusions. 3. Ground glass opacities in left lower lobe and lingula, consistent with pneumonia versus focal pulmonary edema. - If patients WBC continues to worsen during this admission, may consider paracentesis vs drain placement Call made to Dr. Spangler in regards to patients CT abdomen/pelvis, patient requires transfer to a tertiary facility. If patient is going to be here for a few days pending transfer consult GI. [facility] under hospitalist, Dr. Lazo. He was wanting his pleural fluid to be tested for LDH, pH, culture, lipase, and amylase, however patients thoracentesis was not made diagnostic and per US it is out of the window to test. If patient requires another thoracentesis during this admission these labs should be obtained. (4) Pleural effusion: Code(s): J90 - Pleural effusion, not elsewhere classified Status: Acute Assessment and Plan: CXR 09/23: Cardiomegaly with cardiac decompensation and pulmonary edema. Bibasilar opacification suggestive of atelectasis versus pneumonia with left pleural effusion Chest CTA 09/23: No evidence of pulmonary embolus, aortic dissection, or aortic aneurysm. Large bilateral pleural effusions with extensive bilateral atelectasis, especially the lower lobes, as detailed above. Extensive heterogeneous fluid in the upper abdomen, especially left upper quadrant, with extensive infiltration of the mesentery. Etiology is unclear, and is incompletely imaged on the current exam. Diagnostic considerations could include severe pancreatitis versus other etiologies for peritoneal inflammation and fluid. Carcinomatosis/neoplasm is also within the differential diagnosis. CXR 11/5 during rapid response: Stable large left pleural effusion. Stable airspace opacities in right mid and lower lung zones and left lung, consistent with atelectasis versus pneumonia. - Risk Factors: recent hospitalization requiring intubation and tracheostomy - Antibiotics: Zosyn started on 09/23, transitioned to vancomycin and cefepime on 09/24 - Diuretics: Lasix 40 IV daily - Viral PCR: negative for Flu/COVID/RSV - MRSA negative - BNP elevated, Echo ordered - s/p thoracentesis on 09/24 with 900 ml removed. Post thora chest XR shows small left pleural effusion - Requiring 2L NC, resumed BIPAP given severe tachypnea and large pleural effusion. Oxygen wean as tolerated. Keep SpO2 greater than 88% - Monitor vital signs, I&Os, neuro status and patient is a fall risk - Follow WBC, serum electrolytes, temperature curves and cultures Time Spent With Patient Time with patient: Greater than 35 minutes Subjective Date/time seen: 09/24/24 07:41 Interval history: 34 year old male with past medical history of alcohol abuse with severe withdrawals (DT, seizures) and necrotizing pancreatitis presents to the hospital from rehab for hypoxia. Patient was recently hospitalized on 07/12/24 at OSH for 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 He was transferred from OSH to [facility]. He was treated for necrotizing pancreatitis and peripancreatic fluid collection, septic shock (septicemia) requiring broad spectrum antibiotics, progressive encephalopathy requiring intubation for respiratory failure on 07/15/24. A tracheostomy was placed 07/25/24. He was transferred to higher level of care at [facility] on 08/04/24, 08/23 Patient admitted to [facility]; for ventilator weaning. He has since been decannulated and undergoing therapy at rehab. Rapid response called: Reported to patients room at that time. Per RN she went into patients room and found him nonresponsive which prompted her to call the rapid. Patient was alert and oriented on arrival, tachycardic into the 140s and diaphoretic. Pressures remain stable. EKG showing sinus tachycardic. Troponin negative. Saturations were doing well on 2L however he was tachypneic and placed on BIPAP. Patient received 40 IV lasix x1 for the bilateral pleural effusions. Per RN he is to undergo a thoracentesis at 0800 today. Chest XR shows severe left pleural effusion with significantly decreased lung space. ABG was ordered. Patient transferred to ICU as IMU overflow. Antibiotics changed to vancomycin and cefepime due to recent hospitalization. Returned to patients room and he has since been taken off of BIPAP. He remains on 2L NC with normal saturation. Tachycardia to the 130s likely due to ongoing infection. Unable to give IV fluids given the severity of the effusion. Will trial albumin. Patient has no complaints, denying chest pain, shortness of breath, nausea/vomiting and abdominal pain. Call made to Dr. Spangler in regards to patients CT abdomen/pelvis. He states that patient would likely need to be transferred to a tertiary facility. Call made to [facility] given that he was recently discharged from there for necrotizing pancreatitis. Waiting for call back. Of note, [facility] is currently at capacity. Per Dr. Spangler if patient is going to be here for a few days pending transfer we can consult. Returned to patients room and he is in agreement with transfer. Received call back from [facility] transfer and patient has been accepted at [facility] under hospitalist, Dr. Lazo. He requests we start patient on Flagyl. He was also wanting his pleural fluid to be tested for LDH, pH, culture, lipase, and amylase, however patients thoracentesis was not made diagnostic and per US it is out of the window to test. If patient requires another thoracentesis during this admission these labs should be obtained. Review of Systems Review of Systems: All systems reviewed & are unremarkable except as noted in HPI and below Exam Narrative: AF HR 111 RR 19 SpO2 93 2L NC BP 114/80 General: male in acute respiratory distress who is toxic appearing, lying semi recumbent in bed. HEENT: Normocephalic. Atraumatic. Extraocular movement intact. Sclera clear and anicteric. No facial asymmetry. Chest: Lungs are diminished on the right. Left lung is diminished in the uppers, crackles in the middle and no movement in the base. No wheezes. CV: Heart was tachycardic in regular rhythm. S1/S2. No murmurs, gallops, or rubs. Abd: Abdomen was soft. Nontender. Distended. Positive bowel sounds. No organomegaly or masses. Ext: No clubbing, cyanosis, or edema. 2+ DP pulses bilaterally. Neuro: Patient is alert and oriented x4. Speech is clear. Psych: Normal mood and affect. Patient is pleasant and cooperative. Skin: Warm and dry. No rashes noted. Objective Data Vital Signs Vital Signs: Vital Signs - 24 hr 09/23/24 10:58 09/23/24 11:00 09/23/24 11:15 Temperature 98.2 F Pulse Rate 82 87 Respiratory Rate 28 H 30 H Blood Pressure 82/50 L 88/59 L Pulse Oximetry 92 92 Oxygen Delivery Room Air Room Air Oxygen Flow Rate 09/23/24 11:15 09/23/24 11:51 09/23/24 12:01 Temperature Pulse Rate 111 H 114 H Respiratory Rate 34 H 30 H Blood Pressure 108/72 109/73 Pulse Oximetry 100 100 100 Oxygen Delivery Nasal Cannula Oxygen Flow Rate 2 09/23/24 12:23 09/23/24 12:31 09/23/24 12:46 Temperature Pulse Rate 109 H 109 H 109 H Respiratory Rate 30 H 32 H 32 H Blood Pressure 107/69 111/70 108/83 Pulse Oximetry 100 100 99 Oxygen Delivery Oxygen Flow Rate 09/23/24 13:43 09/23/24 13:46 09/23/24 14:01 Temperature Pulse Rate 115 H 113 H 102 H Respiratory Rate 32 H 32 H 33 H Blood Pressure 109/81 107/76 112/83 Pulse Oximetry 98 99 98 Oxygen Delivery Oxygen Flow Rate 09/23/24 14:16 09/23/24 14:31 09/23/24 14:46 Temperature Pulse Rate 115 H 106 H 118 H Respiratory Rate 22 H 28 H 28 H Blood Pressure 120/81 120/85 118/86 Pulse Oximetry 98 98 99 Oxygen Delivery Oxygen Flow Rate 09/23/24 15:01 09/23/24 15:31 09/23/24 16:01 Temperature Pulse Rate 119 H 128 H 125 H Respiratory Rate 30 H 28 H 28 H Blood Pressure 120/84 132/93 H 126/86 Pulse Oximetry 96 98 99 Oxygen Delivery Oxygen Flow Rate 09/23/24 16:31 09/23/24 17:01 09/23/24 17:30 Temperature Pulse Rate 119 H 119 H 119 H Respiratory Rate 32 H 32 H 24 H Blood Pressure 139/85 136/88 Pulse Oximetry 97 100 99 Oxygen Delivery Oxygen Flow Rate 09/23/24 17:35 09/23/24 18:30 09/23/24 18:36 Temperature 99.6 F Pulse Rate 110 H 134 H Respiratory Rate 16 18 Blood Pressure 132/89 137/88 Pulse Oximetry 100 96 100 Oxygen Delivery Nasal Cannula Oxygen Flow Rate 2 09/23/24 19:58 09/23/24 20:00 09/23/24 20:00 Temperature 98.8 F Pulse Rate 130 H 131 H Respiratory Rate 18 Blood Pressure 134/89 Pulse Oximetry 96 97 Oxygen Delivery Nasal Cannula Oxygen Flow Rate 2 09/24/24 00:00 09/24/24 00:00 09/24/24 04:00 Temperature 98.1 F Pulse Rate 135 H 132 H 133 H Respiratory Rate 16 Blood Pressure 139/85 Pulse Oximetry 99 Oxygen Delivery Oxygen Flow Rate 09/24/24 04:00 Temperature 98.4 F Pulse Rate 142 H Respiratory Rate 20 Blood Pressure 125/81 Pulse Oximetry 99 Oxygen Delivery Oxygen Flow Rate Intake/Output Intake/Output: Intake & Output 09/22/24 09/22/24 09/23/24 09/24/24 00:59 23:59 23:59 23:59 Intake Total 50 840 Output Total 400 2000 Balance -350 -1160 Meds/Results Medications: Active Medications Generic Name Dose Route Start Last Admin Trade Name Freq PRN Reason Stop Dose Admin Acetaminophen 650 mg 09/23/24 14:40 09/24/24 06:25 Acetaminophen 325 Mg Tablet PO 650 mg Q4H PRN Administration Mild Pain (1-3) or Fever Hydrocodone Bitart/Acetaminophen 1 tab 09/23/24 14:54 Hydrocodone/Acetaminophen (*Crx) 5-325 Mg Tablet PO Q4H PRN Moderate Pain (4-6) Docusate Sodium 100 mg 09/24/24 09:00 Docusate Sodium 100 Mg Capsule PO DAILY ROZINA Furosemide 40 mg 09/24/24 09:00 Furosemide Inj 40 Mg/4 Ml Vial IV PUSH DAILY [facility]ZINA Piperacillin/Tazobactam/Dextrose 3.375 gm in 50 mls @ 100 mls/hr 09/23/24 22:00 09/24/24 04:54 Zosyn 3.375 Gm/Ns 50 Ml IVPB 100 mls/hr Q6H ROZINA Administration Ondansetron HCl 4 mg 09/23/24 14:40 Ondansetron Inj 4 Mg/2 Ml Vial IV PUSH Q4H PRN Nausea Pantoprazole Sodium 40 mg 09/24/24 09:00 Pantoprazole Sodium Iv 40 Mg Vial IV PUSH DAILY [facility] Perflutren Lipid Microsphere 0 ml 09/23/24 14:54 Perflutren Lipid Microspheres 1.5 Ml Vial Diluted To 10 Ml Total Volume IV PUSH 09/26/24 14:54 ONCE PRN adequate visualization Protocol Radiology Results: ITS Impressions Chest X-Ray 09/23/24 11:41 IMPRESSION: Cardiomegaly with cardiac decompensation and pulmonary edema. Bibasilar opacification suggestive of atelectasis versus pneumonia with left pleural effusion Chest CTA 09/23/24 13:29 Impression: No evidence of pulmonary embolus, aortic dissection, or aortic aneurysm. Large bilateral pleural effusions with extensive bilateral atelectasis, especially the lower lobes, as detailed above. Extensive heterogeneous fluid in the upper abdomen, especially left upper quadrant, with extensive infiltration of the mesentery. Etiology is unclear, and is incompletely imaged on the current exam. Diagnostic considerations could include severe pancreatitis versus other etiologies for peritoneal inflammation and fluid. Carcinomatosis/neoplasm is also within the differential diagnosis. Correlate with any relevant clinical history an prior workup. Dedicated abdominal pelvic CT scan with contrast should be strongly considered to further evaluate. Labs Labs: Laboratory Results - last 24 hr 09/23/24 09/23/24 09/23/24 12:06 12:22 12:23 WBC RBC Hgb Hct MCV MCH MCHC RDW Plt Count MPV Immature Gran % (Auto) Neut % (Auto) Lymph % (Auto) [place] % (Auto) Eos % (Auto) Baso % (Auto) Lymph # (Auto) [place] # (Auto) Eos # (Auto) Baso # (Auto) Abs Immat Gran (auto) Absolute Neuts (auto) Absolute Nucleated RBC Nucleated RBC % PT INR APTT Puncture Site Right radial ABG pH 7.321 L ABG pCO2 65.8 H* ABG pO2 89.2 ABG PO2/FiO2 Ratio 3.19 ABG HCO3 33.2 H ABG O2 Saturation 95.9 ABG O2 Content 12.6 L ABG Base Excess 5.9 A-a Gradient 32.8 Oxyhemoglobin 95.5 Total Hemoglobin 9.3 L O2 Delivery Device Nasal cannula O2 Liters/Min 2.0 FiO2 28 Sodium Potassium Chloride Carbon Dioxide Anion Gap BUN Creatinine Estim Creat Clear Calc Estimated GFR Glucose POC Capillary Glucose Lactic Acid Calcium Total Bilirubin AST ALT Alkaline Phosphatase Troponin I NT-Pro-B Natriuret Pep Total Protein Albumin Lipase 28 Influenza A (RT-PCR) Negative Influenza B (RT-PCR) Negative RSV (RT-PCR) Negative SARS-CoV-2 RNA (RT-PCR) Negative 09/23/24 09/23/24 09/23/24 12:24 12:25 12:26 WBC 14.2 H RBC 2.72 L Hgb 8.3 L Hct 27.4 L MCV 100.7 H MCH 30.5 MCHC 30.3 L RDW 16.0 H Plt Count 578 H MPV 9.3 Immature Gran % (Auto) 2.2 H Neut % (Auto) 72.8 Lymph % (Auto) 12.2 L [place] % (Auto) 9.1 H Eos % (Auto) 2.4 Baso % (Auto) 1.3 H Lymph # (Auto) 1.73 [place] # (Auto) 1.3 H Eos # (Auto) 0.3 Baso # (Auto) 0.2 H Abs Immat Gran (auto) 0.31 H Absolute Neuts (auto) 10.3 H Absolute Nucleated RBC 0.000 Nucleated RBC % 0.0 PT 14.4 INR 1.1 APTT 31.8 Puncture Site ABG pH ABG pCO2 ABG pO2 ABG PO2/FiO2 Ratio ABG HCO3 ABG O2 Saturation ABG O2 Content ABG Base Excess A-a Gradient Oxyhemoglobin Total Hemoglobin O2 Delivery Device O2 Liters/Min FiO2 Sodium 138 Potassium 4.2 Chloride 97 L Carbon Dioxide 36 H Anion Gap 5 BUN 8 L Creatinine 0.70 Estim Creat Clear Calc 138 Estimated GFR > 60 Glucose 90 POC Capillary Glucose Lactic Acid 1.3 Calcium 9.4 Total Bilirubin 1.0 AST 24 ALT 35 Alkaline Phosphatase 229 H Troponin I < 0.012 NT-Pro-B Natriuret Pep 2300 H Total Protein 7.0 Albumin 3.2 L Lipase Influenza A (RT-PCR) Influenza B (RT-PCR) RSV (RT-PCR) SARS-CoV-2 RNA (RT-PCR) 09/23/24 09/23/24 09/24/24 20:05 23:54 01:16 WBC RBC Hgb Hct MCV MCH MCHC RDW Plt Count MPV Immature Gran % (Auto) Neut % (Auto) Lymph % (Auto) [place] % (Auto) Eos % (Auto) Baso % (Auto) Lymph # (Auto) [place] # (Auto) Eos # (Auto) Baso # (Auto) Abs Immat Gran (auto) Absolute Neuts (auto) Absolute Nucleated RBC Nucleated RBC % PT INR APTT Puncture Site ABG pH ABG pCO2 ABG pO2 ABG PO2/FiO2 Ratio ABG HCO3 ABG O2 Saturation ABG O2 Content ABG Base Excess A-a Gradient Oxyhemoglobin Total Hemoglobin O2 Delivery Device O2 Liters/Min FiO2 Sodium Potassium Chloride Carbon Dioxide Anion Gap BUN Creatinine Estim Creat Clear Calc Estimated GFR Glucose POC Capillary Glucose 149 H Lactic Acid 2.2 H 1.9 Calcium Total Bilirubin AST ALT Alkaline Phosphatase Troponin I NT-Pro-B Natriuret Pep Total Protein Albumin Lipase Influenza A (RT-PCR) Influenza B (RT-PCR) RSV (RT-PCR) SARS-CoV-2 RNA (RT-PCR) 09/24/24 09/24/24 09/24/24 05:33 05:33 05:43 WBC 14.4 H RBC 2.89 L Hgb 8.8 L Hct 28.7 L MCV 99.3 MCH 30.4 MCHC 30.7 L RDW 15.6 H Plt Count 518 H MPV 8.9 Immature Gran % (Auto) 2.2 H Neut % (Auto) 79.6 H Lymph % (Auto) 8.2 L [place] % (Auto) 7.1 Eos % (Auto) 1.9 Baso % (Auto) 1.0 Lymph # (Auto) 1.18 [place] # (Auto) 1.0 H Eos # (Auto) 0.3 Baso # (Auto) 0.2 H Abs Immat Gran (auto) 0.32 H Absolute Neuts (auto) 11.5 H Absolute Nucleated RBC 0.000 Nucleated RBC % 0.0 PT 14.2 INR 1.1 APTT Cancelled 30.7 Puncture Site ABG pH ABG pCO2 ABG pO2 ABG PO2/FiO2 Ratio ABG HCO3 ABG O2 Saturation ABG O2 Content ABG Base Excess A-a Gradient Oxyhemoglobin Total Hemoglobin O2 Delivery Device O2 Liters/Min FiO2 Sodium 137 Potassium 3.7 Chloride 94 L Carbon Dioxide 38 H Anion Gap 5 BUN 7 L Creatinine 0.80 Estim Creat Clear Calc 122 Estimated GFR > 60 Glucose 129 H POC Capillary Glucose 129 H Lactic Acid Calcium 9.1 Total Bilirubin 1.0 AST 25 ALT 34 Alkaline Phosphatase 237 H Troponin I NT-Pro-B Natriuret Pep Total Protein 7.0 Albumin 3.2 L Lipase Influenza A (RT-PCR) Influenza B (RT-PCR) RSV (RT-PCR) SARS-CoV-2 RNA (RT-PCR) 09/24/24 07:20 WBC RBC Hgb Hct MCV MCH MCHC RDW Plt Count MPV Immature Gran % (Auto) Neut % (Auto) Lymph % (Auto) [place] % (Auto) Eos % (Auto) Baso % (Auto) Lymph # (Auto) [place] # (Auto) Eos # (Auto) Baso # (Auto) Abs Immat Gran (auto) Absolute Neuts (auto) Absolute Nucleated RBC Nucleated RBC % PT INR APTT Puncture Site ABG pH ABG pCO2 ABG pO2 ABG PO2/FiO2 Ratio ABG HCO3 ABG O2 Saturation ABG O2 Content ABG Base Excess A-a Gradient Oxyhemoglobin Total Hemoglobin O2 Delivery Device O2 Liters/Min FiO2 Sodium Potassium Chloride Carbon Dioxide Anion Gap BUN Creatinine Estim Creat Clear Calc Estimated GFR Glucose POC Capillary Glucose Lactic Acid 1.2 Calcium Total Bilirubin AST ALT Alkaline Phosphatase Troponin I NT-Pro-B Natriuret Pep Total Protein Albumin Lipase Influenza A (RT-PCR) Influenza B (RT-PCR) RSV (RT-PCR) SARS-CoV-2 RNA (RT-PCR) Quality VTE Prophylaxis VTE prophylaxis: mechanical ordered
[2024-09-24 07:42] LABS: PCO2 ABG 69.6 mmHg (35.0-45.0)
[2024-09-24 07:43] LABS: Non-Invasive Expiratory Pressure 7 CMH2O; Non-Invasive Inspiratory Pressure 16 CMH2O; Non-Invasive Vent Rate 12 /MIN
[2024-09-24 07:54] LABS: Troponin I < 0.012 ng/mL (0.000-0.034)
[2024-09-24] MEDS: PANTOPRAZOLE SODIUM IV 40 MG VIAL IV PUSH (08:15)
[2024-09-24] MEDS: VANCOMYCIN 2,000 MG/NS 500 ML 2,000 MG/500 ML BAG 250 MG IVPB (08:58)
[2024-09-24] MEDS: CEFEPIME 2 GM/NS 50 ML 2 GM/50 ML BAG IVPB ×3 (09:01→22:29)
[2024-09-24 09:16] LABS: Glucose Point of Care 129 mg/dl (65-105)
--- NOTE | 2024-09-24 09:18 | PM.CNCAR ---
Assessment and Plan Assessment and plan (1) Chest pain: Code(s): R07.9 - Chest pain, unspecified Status: Acute Assessment and Plan: Patient denies having any chest pain. His EKG shows sinus tachycardia with no ST or T-wave abnormalities. Troponin levels are negative. Echocardiogram shows normal LV function, no significant valvular pathology. This patient does not appear to have any cardiac problems. No further workup is indicated or recommended. Cardiology will sign off. Please do not hesitate to call with any questions. History of Present Illness History of Present Illness Consult date/time: 09/24/24 09:18 Requesting physician: Caron Jeronimo APRN Consult reason: chest pain Reason For Visit: r/o PE Narrative: Kevin Sorto is a 34 year old male with history of alcohol abuse and necrotizing pancreatitis who recently had a prolonged hospitalization at [facility] because of alcohol withdrawal and necrotizing pancreatitis. He comes to the hospital now from [facility] because of hypoxia. Cardiology is consulted for chest pain. Patient states he was having his vital signs checked at rehab and he was found to be hypoxic and transferred to the emergency department for further evaluation. He states he was feeling well during this and did not have any shortness of breath. He denies having any chest pain and does not recall complaining of chest pain at any time. He denies any cardiac history. He is resting comfortably in bed at this time and does not have any complaints. Review of Systems Constitutional: Constitutional: Denies chills, Denies fever(s), Denies headache(s) and Denies malaise Eyes: Eyes: Denies change in vision ENT: Reports Normal hearing present, Denies dizziness, Denies headache(s) and Denies hearing loss Cardiovascular: Cardiovascular: Denies chest pain, Denies chest pain at rest, Denies chest pain with activity, Denies syncope, Denies leg edema, Denies palpitations, Denies dyspnea and Denies dyspnea on exertion Respiratory: Respiratory: Denies cough, Denies dyspnea, Denies dyspnea on exertion and Denies wheezing Gastrointestinal: Gastrointestinal: Denies abdominal pain, Denies constipation and Denies diarrhea Genitourinary: Genitourinary: Denies hematuria and Denies dysuria Musculoskeletal: Musculoskeletal: Denies myalgias, Denies arthralgias and Denies muscle cramps Integumentary/Breasts: Skin/Breast: Denies wounds Neurologic: Reports Normal hearing present, Denies confusion, Denies dizziness, Denies syncope and Denies headache(s) Psychiatric: Psychiatric: Denies anxiety, Denies confusion and Denies depression Endocrine: Endocrine: Denies cold intolerance, Denies flushing, Denies heat intolerance and Denies palpitations Hematologic/Lymphatic: Hematologic/Lymphatic: Denies easy bleeding and Denies easy bruising Allergic/Immunologic: Allergic/Immunologic: Denies wheezing PMFSH Past Medical History Medical History Necrotizing pancreatitis Social History Social History Smoking status: Never smoker Alcohol intake: former Drinks per week: 7 Substance use: current Substance use type: prescription drug Other substance usage details: prescribed opiates Last use: last drink in June Do You Feel Safe in your Home?: Yes Lack of Transportation: No Lack of Food: Never True Current Housing: I Have Housing Concerned About Future Housing: No Difficulty Paying Gas/Electric Bills: No Difficulty Paying for Meds: No Currently Unemployed: No Education: High School Diploma/GED Difficulty w/ Childcare or Family Care: No Additional living arrangements comments: Currently at [facility] Spiritual care concerns: No Meds Home Medications and Allergies Home Medications Medication Instructions Recorded Confirmed Type acetaminophen 325 mg tablet 650 mg PO Q6H PRN Fever or Pain 09/18/24 09/23/24 History (1-4) clonidine HCl 0.1 mg tablet 0.1 mg PO Q12H 09/18/24 09/23/24 History folic acid 1 mg tablet 1 mg PO DAILY 09/18/24 09/23/24 History hydroxyzine HCl 10 mg tablet 12.5 mg PO TID PRN Anxiety 09/18/24 09/23/24 History insulin lispro 100 unit/mL See Protocol subcut USEASDIRECTD 09/18/24 09/23/24 History subcutaneous solution lipase 10,500-protease 2 cap PO AC 09/18/24 09/23/24 History 35,500-amylase 61,500 unit capsule,delayed rel (Pancreaze) melatonin 3 mg tablet 9 mg PO HS PRN Insomnia 09/18/24 09/23/24 History metformin 500 mg tablet 500 mg PO BIDWM 09/18/24 09/23/24 History metoprolol tartrate 37.5 mg tablet 37.5 mg PO Q12H 09/18/24 09/23/24 History oxycodone 5 mg tablet 5 mg PO Q4H PRN Pain (5-10) 09/18/24 09/23/24 History pantoprazole 40 mg tablet,delayed 40 mg PO DAILY 09/18/24 09/23/24 History release sennosides 8.6 mg tablet 8.6 mg PO DAILY 09/18/24 09/23/24 History thiamine HCl (vitamin B1) 100 mg 100 mg PO DAILY 09/18/24 09/23/24 History tablet enoxaparin 40 mg/0.4 mL 40 mg subcut DAILY 09/23/24 09/23/24 History subcutaneous syringe gabapentin 300 mg capsule 300 mg PO TID 09/23/24 09/23/24 History Allergies Allergy/AdvReac Type Severity Reaction Status Date / Time No Known Allergies Allergy Verified 09/23/24 18:52 Vital Signs Vital Signs - 24 hr 09/23/24 10:58 09/23/24 11:00 09/23/24 11:15 Temperature 36.8 C Pulse Rate 82 87 Respiratory Rate 28 H 30 H Blood Pressure 82/50 L 88/59 L Pulse Oximetry 92 92 Oxygen Delivery Room Air Room Air Oxygen Flow Rate 09/23/24 11:15 09/23/24 11:51 09/23/24 12:01 Temperature Pulse Rate 111 H 114 H Respiratory Rate 34 H 30 H Blood Pressure 108/72 109/73 Pulse Oximetry 100 100 100 Oxygen Delivery Nasal Cannula Oxygen Flow Rate 2 09/23/24 12:23 09/23/24 12:31 09/23/24 12:46 Temperature Pulse Rate 109 H 109 H 109 H Respiratory Rate 30 H 32 H 32 H Blood Pressure 107/69 111/70 108/83 Pulse Oximetry 100 100 99 Oxygen Delivery Oxygen Flow Rate 09/23/24 13:43 09/23/24 13:46 09/23/24 14:01 Temperature Pulse Rate 115 H 113 H 102 H Respiratory Rate 32 H 32 H 33 H Blood Pressure 109/81 107/76 112/83 Pulse Oximetry 98 99 98 Oxygen Delivery Oxygen Flow Rate 09/23/24 14:16 09/23/24 14:31 09/23/24 14:46 Temperature Pulse Rate 115 H 106 H 118 H Respiratory Rate 22 H 28 H 28 H Blood Pressure 120/81 120/85 118/86 Pulse Oximetry 98 98 99 Oxygen Delivery Oxygen Flow Rate 09/23/24 15:01 09/23/24 15:31 09/23/24 16:01 Temperature Pulse Rate 119 H 128 H 125 H Respiratory Rate 30 H 28 H 28 H Blood Pressure 120/84 132/93 H 126/86 Pulse Oximetry 96 98 99 Oxygen Delivery Oxygen Flow Rate 09/23/24 16:31 09/23/24 17:01 09/23/24 17:30 Temperature Pulse Rate 119 H 119 H 119 H Respiratory Rate 32 H 32 H 24 H Blood Pressure 139/85 136/88 Pulse Oximetry 97 100 99 Oxygen Delivery Oxygen Flow Rate 09/23/24 17:35 09/23/24 18:30 09/23/24 18:36 Temperature 37.6 C Pulse Rate 110 H 134 H Respiratory Rate 16 18 Blood Pressure 132/89 137/88 Pulse Oximetry 100 96 100 Oxygen Delivery Nasal Cannula Oxygen Flow Rate 2 09/23/24 19:58 09/23/24 20:00 09/23/24 20:00 Temperature 37.1 C Pulse Rate 130 H 131 H Respiratory Rate 18 Blood Pressure 134/89 Pulse Oximetry 96 97 Oxygen Delivery Nasal Cannula Oxygen Flow Rate 2 09/24/24 00:00 09/24/24 00:00 09/24/24 04:00 Temperature 36.7 C Pulse Rate 135 H 132 H 133 H Respiratory Rate 16 Blood Pressure 139/85 Pulse Oximetry 99 Oxygen Delivery Oxygen Flow Rate 09/24/24 04:00 09/24/24 07:15 09/24/24 07:31 Temperature 36.9 C 36.8 C Pulse Rate 142 H 130 H 132 H Respiratory Rate 20 30 H 24 H Blood Pressure 125/81 135/80 Pulse Oximetry 99 100 97 Oxygen Delivery Nasal Cannula BiPAP Oxygen Flow Rate 2 Exam Const: General: comfortable, no acute distress, alert and awake Orientation/consciousness: patient oriented x3 HENMT: Head: normal to inspection Eyes: General: appearance normal, both eyes and all related structures Pupils: Equal, round and reactive pupils present Neck: Neck: normal visual inspection, supple and no JVD Carotids: normal carotid upstroke Resp: Effort & Inspection: normal respiratory effort Auscultation: clear to auscultation bilaterally Cardio: Rate: regular rate Rhythm: regular rhythm Heart sounds: S1 normal heart sound present, S2 normal heart sound present and no murmurs GI: Auscultation: normal bowel sounds Skin: General skin exam: normal color Neuro: General: patient oriented x3 Cranial nerves: Yes Equal, round and reactive pupils present Extrem: General: normal to inspection Psych: Appearance: grossly normal Mental Status: mental status grossly normal Results Labs and Meds 09/24/24 05:33 09/24/24 05:33 Lab results: Cardiac Enzymes 09/23/24 09/24/24 09/24/24 Range/Units 12:25 05:33 07:20 AST 24 25 (17-59) U/L Troponin I < 0.012 < 0.012 (0.000-0.034) ng/mL Coagulation 09/23/24 09/24/24 09/24/24 Range/Units 12:24 05:33 05:33 PT 14.4 14.2 (11.1-14.7) Seconds APTT 31.8 Cancelled 30.7 (22.3-36.8) Seconds CBC 09/23/24 09/24/24 Range/Units 12:25 05:33 WBC 14.2 H 14.4 H (4.5-10.0) K/mm3 RBC 2.72 L 2.89 L (4.6-6.20) M/mm3 Hgb 8.3 L 8.8 L (14.0-18.0) g/dL Hct 27.4 L 28.7 L (42.0-52.0) % Plt Count 578 H 518 H (150-375) k/mm3 Lymph # (Auto) 1.73 1.18 (0.9-3.2) K/mm3 [place] # (Auto) 1.3 H 1.0 H (0.1-0.6) K/mm3 Eos # (Auto) 0.3 0.3 (0-0.3) K/mm3 Baso # (Auto) 0.2 H 0.2 H (0.0-0.1) K/mm3 Comprehensive Metabolic Panel 09/23/24 09/24/24 Range/Units 12:25 05:33 Sodium 138 137 (137-145) mmol/L Potassium 4.2 3.7 (3.4-5.0) mmol/L Chloride 97 L 94 L (98-107) mmol/L Carbon Dioxide 36 H 38 H (22-30) mmol/L BUN 8 L 7 L (9-20) mg/dL Creatinine 0.70 0.80 (0.7-1.3) mg/dL Glucose 90 129 H (65-110) mg/dL Calcium 9.4 9.1 (8.4-10.2) mg/dL AST 24 25 (17-59) U/L ALT 35 34 (6-50) U/L Alkaline Phosphatase 229 H 237 H (38-126) U/L Total Protein 7.0 7.0 (6.3-8.2) g/dL Albumin 3.2 L 3.2 L (3.5-5.1) g/dL Intake and Output 09/23/24 09/24/24 09/24/24 23:59 07:59 15:59 Intake Total 50 840 Output Total 400 2000 Balance -350 -1160 Intake: IV 50 Piperacilln/Nakul 3.375GM/Ns50ml 50 3.375 gm In 50 ml @ 100 mls/hr IVPB Q6H [facility] Rx#:[id number] Oral 840 Output: Urine 400 2000 Other: # Unmeasured Voids 1 Patient Weight 09/24/24 23:59 Weight 81.6 kg
--- NOTE | 2024-09-24 09:49 | PCPTNOTE ---
Patient is to be held at this time due to medical condition per RN. Pt had a rapid response this morning and getting/test/procedures. Will follow.
[2024-09-24 09:51] LABS: Add Urine Microscopic? NO; Appearance Urine Clear (Clear); Bilirubin Urine Negative (Negative); Blood Urine Negative (Negative); Color Urine Yellow (Yellow); Glucose Urine UA Negative (Negative); Ketones Urine Negative (Negative); Leukocyte Esterase Ur Negative LEU/UL (Negative); Nitrate Urine Negative (Negative); Protein Urine Negative (Negative); Specific Grav Ur 1.006 (1.001-1.035); Urobilinogen Urine 0.2 mg/dL (<2.0); pH Urine 5.5 (5.0-9.0)
[2024-09-24 10:41] LABS: Troponin I < 0.012 ng/mL (0.000-0.034)
--- NOTE | 2024-09-24 10:59 | PCOTNOTE ---
Patient is to be held at this time due to medically not stable as a rapid response was held previously.
[2024-09-24 11:44] LABS: MRSA (PCR) NOT DETECTED (NOT DETECTE)
[2024-09-24 12:27] LABS: Glucose Point of Care 100 mg/dl (65-105)
[2024-09-24 13:51] LABS: Alveolar/Arterial O2 Gradient 23.2 mmHg; Base Excess ABG 7.5 mEq/l (+/-2.0); Fractional Inspired Oxygen 28 %; HCO3 ABG 33.8 mEq/l (22.0-26.0); Oxygen Content ABG 13.1 %vol (16.0-22.0); Oxygen Saturation ABG 97.7 % (95.0-100.0); Oxyhemoglobin 97.3 % THb (90.0-100.0); PCO2 ABG 58.4 mmHg (35.0-45.0); PO2 ABG 107.5 mmHg (80.0-100.0); PO2 FiO2 Ratio Arterial Blood 3.84 %; Total Hemoglobin 9.4 g/dL (12.0-18.0); pH ABG 7.381 (7.350-7.450)
[2024-09-24 13:53] LABS: Device NASAL CANNULA; Modified Allen's Test Pass; Site Drawn RIGHT RADIAL
[2024-09-24] MEDS: ALBUMIN HUMAN 25% 12.5 GM/50ML 50 ML IVPB (15:21)
[2024-09-24] MEDS: metroNIDAZOLE 500 MG/ISO 100ML 500 MG/100 ML BAG 100 MG IVPB (15:27)
[2024-09-24] MEDS: SODIUM CHLORIDE 0.9% IV 1,000 ML 50 ML IV CONT (16:45)
[2024-09-24] MEDS: ALBUMIN HUMAN 25% 25 GM/100 ML 100 ML IVPB ×2 (17:01→23:16)
[2024-09-24 17:26] LABS: Glucose Point of Care 165 mg/dl (65-105)
[2024-09-24 19:24] LABS: Glucose Point of Care 162 mg/dl (65-105)
[2024-09-24] MEDS: cloNIDine HCL 0.1 MG TABLET PO (19:37)
[2024-09-24] MEDS: VANCOMYCIN 1,500 MG/NS 500 ML 1,500 MG/500 ML BAG 250 MG IVPB (19:37)
[2024-09-24] MEDS: METOPROLOL TARTRATE 12.5 MG TABLET PO (19:37)
[2024-09-24] MEDS: HYDROcodone/acetaminophen (*CRX) 5-325 MG TABLET 1 TAB PO (20:53)
[2024-09-25] VITALS (20 sets, daily range): BP systolic 96–129; BP diastolic 71–92; PULSE 99–122; RESP 20–30; TEMP 36.4–37.1; O2SAT 95–100
[2024-09-25] MEDS: metroNIDAZOLE 500 MG/ISO 100ML 500 MG/100 ML BAG 100 MG IVPB ×3 (00:26→15:43)
[2024-09-25] MEDS: HYDROcodone/acetaminophen (*CRX) 5-325 MG TABLET 1 TAB PO ×2 (02:15→23:11)
--- NOTE | 2024-09-25 02:28 | PC.NURSE ---
Patient refuses bipap.
[2024-09-25 04:02] LABS: Basophils Absolute Auto 0.2 K/mm3 (0.0-0.1); Basophils Percent Auto 1.1 % (0.2-1.2); Eosinophils Absolute Auto 0.6 K/mm3 (0-0.3); Eosinophils Percent Auto 4.5 % (0-4.4); Hematocrit 27.3 % (42.0-52.0); Hemoglobin 8.1 g/dL (14.0-18.0); Immature Granulocyte Absolute 0.19 K/mm3 (0.00-0.031); Immature Granulocyte Percent A 1.3 % (0-0.5); Lymphocytes Absolute Auto 0.94 K/mm3 (0.9-3.2); Lymphocytes Percent Auto 6.6 % (18.3-44.2); Mean Corpuscular HGB Conc 29.7 g/dl (32-36); Mean Corpuscular Volume 101.1 fl (80-100); Mean Platelet Volume 9.2 fl (7.4-10.4); Monocytes Absolute Auto 1.3 K/mm3 (0.1-0.6); Monocytes Percent Auto 8.9 % (2.6-8.5); Neutrophils Absolute Auto 11.1 K/mm3 (1.3-6.7); Neutrophils Percent Auto 77.6 % (45.5-73.1); Platelet Count Result 483 k/mm3 (150-375); Red Cell Distribution Width 15.6 % (11.5-14.5); White Blood Count 14.3 K/mm3 (4.5-10.0)
[2024-09-25 04:09] LABS: Hypochromasia 1+; Platelet Estimate Increased (Adequate)
[2024-09-25 04:10] LABS: Ovalocytes 1+; Schistocytes None Seen
[2024-09-25 04:20] LABS: Alanine Aminotransferase 26 U/L (6-50); Albumin Level 3.7 g/dL (3.5-5.1); Alkaline Phosphatase 160 U/L (38-126); Aspartate Amino Transferase 21 U/L (17-59); Bilirubin,Total 0.8 mg/dL (0.2-1.3); Blood Urea Nitrogen 9 mg/dL (9-20); CRP 3.5 mg/dL (<1.0); Calcium 9.3 mg/dL (8.4-10.2); Carbon Dioxide > 40 mmol/L (22-30); Chloride 92 mmol/L (98-107); Estimated CRCL calculation 138 ml/min; Estimated Glomerular Filt Rate > 60; Glucose 130 mg/dL (65-110); Potassium 3.2 mmol/L (3.4-5.0); Sodium 141 mmol/L (137-145)
[2024-09-25] MEDS: ALBUMIN HUMAN 25% 25 GM/100 ML 100 ML IVPB ×3 (04:53→18:18)
[2024-09-25] MEDS: METOPROLOL TARTRATE INJ 5 MG/5 ML VIAL IV PUSH (04:53)
[2024-09-25 05:48] LABS: Procalcitonin 0.3 ng/mL
[2024-09-25] MEDS: CEFEPIME 2 GM/NS 50 ML 2 GM/50 ML BAG IVPB ×3 (05:49→20:08)
[2024-09-25] MEDS: PANTOPRAZOLE SODIUM IV 40 MG VIAL IV PUSH (08:29)
[2024-09-25] MEDS: cloNIDine HCL 0.1 MG TABLET PO ×2 (08:30→20:09)
[2024-09-25] MEDS: METOPROLOL TARTRATE 25 MG TABLET PO ×2 (08:30→20:09)
[2024-09-25] MEDS: FUROSEMIDE INJ 40 MG/4 ML VIAL IV PUSH (08:30)
[2024-09-25] MEDS: POTASSIUM CHLORIDE 20 MEQ ER TABLET 40 MEQ PO (08:33)
[2024-09-25] MEDS: VANCOMYCIN 1,500 MG/NS 500 ML 1,500 MG/500 ML BAG 250 MG IVPB (10:04)
[2024-09-25] MEDS: ONDANSETRON INJ 4 MG/2 ML VIAL IV PUSH (10:23)
[2024-09-25 12:47] LABS: Glucose Point of Care 104 mg/dl (65-105)
--- NOTE | 2024-09-25 16:11 | PM.IMPN ---
Progress Note: A&P Assessment and Plan (1) Sepsis: Code(s): A41.9 - Sepsis, unspecified organism Status: Acute Assessment and Plan: Meets SIRS criteria: HR, RR, lactic, WBC - Hold Lasix for 2 days for volume expansion. Continue albumin q 6 hrs. - Need PT /OT - lactic acid: 2.2 > 1.9 > 1.2 - Patient did not receive sepsis bolus on admission, likely due to severe effusion. - He remains tachycardic into the 130s likely due to ongoing infection, given albumin 25% x1. - suspected source: pneumonia vs necrotizing pancreatitis - blood cultures drawn on 09/23: pending - Antibiotics: vancomycin, cefepime, flagyl - UA non concerning for infection - CXR 09/23: Cardiomegaly with cardiac decompensation and pulmonary edema. Bibasilar opacification suggestive of atelectasis versus pneumonia with left pleural effusion - Chest CTA 09/23: No evidence of pulmonary embolus, aortic dissection, or aortic aneurysm. Large bilateral pleural effusions with extensive bilateral atelectasis, especially the lower lobes, as detailed above. Extensive heterogeneous fluid in the upper abdomen, especially left upper quadrant, with extensive infiltration of the mesentery. Etiology is unclear, and is incompletely imaged on the current exam. Diagnostic considerations could include severe pancreatitis versus other etiologies for peritoneal inflammation and fluid. Carcinomatosis/neoplasm is also within the differential diagnosis. - Abdomen/pelvis CT 1. 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 2. Moderate-sized pleural effusions. 3. Groundglass opacities in left lower lobe and lingula, consistent with pneumonia versus focal pulmonary edema. 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 He was transferred from [facility] to [facility]. He was treated for necrotizing pancreatitis and peripancreatic fluid collection, septic shock (septicemia) requiring broad spectrum antibiotics, progressive encephalopathy requiring intubation for respiratory failure on 07/15/24. A tracheostomy was placed 07/25/24. He was transferred to higher level of care at [facility] on 08/04/24, 08/23 Patient admitted to [facility]; for ventilator weaning. He has since been decannulated and undergoing therapy at rehab. - Antibiotics: vancomycin, cefepime, Flagyl - CT abdomen/pelvis: 1. 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 2. Moderate-sized pleural effusions. 3. Ground glass opacities in left lower lobe and lingula, consistent with pneumonia versus focal pulmonary edema. - If patients WBC continues to worsen during this admission, may consider paracentesis vs drain placement Call made to Dr. Spangler in regards to patients CT abdomen/pelvis, patient requires transfer to a tertiary facility. If patient is going to be here for a few days pending transfer consult GI. [facility] under hospitalist, Dr. Lazo. He was wanting his pleural fluid to be tested for LDH, pH, culture, lipase, and amylase, however patients thoracentesis was not made diagnostic and per US it is out of the window to test. If patient requires another thoracentesis during this admission these labs should be obtained. (4) Pleural effusion: Code(s): J90 - Pleural effusion, not elsewhere classified Status: Acute Assessment and Plan: CXR 09/23: Cardiomegaly with cardiac decompensation and pulmonary edema. Bibasilar opacification suggestive of atelectasis versus pneumonia with left pleural effusion Chest CTA 09/23: No evidence of pulmonary embolus, aortic dissection, or aortic aneurysm. Large bilateral pleural effusions with extensive bilateral atelectasis, especially the lower lobes, as detailed above. Extensive heterogeneous fluid in the upper abdomen, especially left upper quadrant, with extensive infiltration of the mesentery. Etiology is unclear, and is incompletely imaged on the current exam. Diagnostic considerations could include severe pancreatitis versus other etiologies for peritoneal inflammation and fluid. Carcinomatosis/neoplasm is also within the differential diagnosis. CXR 09/24 during rapid response: Stable large left pleural effusion. Stable airspace opacities in right mid and lower lung zones and left lung, consistent with atelectasis versus pneumonia. - Risk Factors: recent hospitalization requiring intubation and tracheostomy - Antibiotics: Zosyn started on 09/23, transitioned to vancomycin and cefepime on 09/24 - Diuretics: Lasix 40 IV daily - Viral PCR: negative for Flu/COVID/RSV - MRSA negative - BNP elevated, Echo ordered - s/p thoracentesis on 09/24 with 900 ml removed. Post thora chest XR shows small left pleural effusion - Requiring 2L NC, resumed BIPAP given severe tachypnea and large pleural effusion. Oxygen wean as tolerated. Keep SpO2 greater than 88% - Monitor vital signs, I&Os, neuro status and patient is a fall risk - Follow WBC, serum electrolytes, temperature curves and cultures Subjective Date/time seen: 09/25/24 16:11 Interval history: Had a long long with his Aunt who is very close to him and actively participate in his health care. 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 Patient started on alcohol in his late teen and eventually became addicted. Off note: He had a complicated hospitalization starting 07/12/24 at OSH for 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 He was transferred from OSH to [facility]. He was treated for necrotizing pancreatitis and peripancreatic fluid collection, septic shock (septicemia) requiring broad spectrum antibiotics, progressive encephalopathy requiring Intubation for respiratory failure on 07/15/24. A tracheostomy was placed 07/25/24. He was transferred to higher level of care at [facility] on 08/04/24 for necrotizing pancreatitis. 08/23 Patient admitted to [facility]; for ventilator weaning. Patient later transferred to [facility] and transferred here because of Hypoxia. Call made to Dr. Spangler during current admission in regards to patients CT abdomen/pelvis, patient requires transfer to a tertiary facility. If patient is going to be here for a few days pending transfer consult GI. Patient has been accepted at [facility] step down under hospitalist, Dr. Lazo. He was wanting his pleural fluid to be tested for LDH, pH, culture, lipase, and amylase, however patients thoracentesis was not made diagnostic and per US it is out of the window to test. If patient requires another thoracentesis during this admission these labs should be obtained. Patient is not edematous. Patient has protein malnutrition. Hold lasix for 2 days for volume expansion. Continue albumin q 6 hrs. Need PT /OT Review of Systems Review of Systems: 12 systems were reviewed and are negative except for as per HPI. All systems reviewed & are unremarkable except as noted in HPI and below Exam Narrative: AF HR 111 RR 19 SpO2 93 2L NC BP 114/80 General: male in acute respiratory distress who is toxic appearing, lying semi recumbent in bed. HEENT: Normocephalic. Atraumatic. Extraocular movement intact. Sclera clear and anicteric. No facial asymmetry. Chest: Lungs are diminished on the right. Left lung is diminished in the uppers, crackles in the middle and no movement in the base. No wheezes. CV: Heart was tachycardic in regular rhythm. S1/S2. No murmurs, gallops, or rubs. Abd: Abdomen was soft. Nontender. Distended. Positive bowel sounds. No organomegaly or masses. Ext: No clubbing, cyanosis, or edema. 2+ DP pulses bilaterally. Neuro: Patient is alert and oriented x4. Speech is clear. Psych: Normal mood and affect. Patient is pleasant and cooperative. Skin: Warm and dry. No rashes noted. Objective Data Vital Signs Vital Signs: Vital Signs - 24 hr 09/24/24 16:27 09/24/24 17:01 09/24/24 18:00 Temperature 100.9 F H 101 F H Pulse Rate 138 H Pulse Rate [With Activity During Therapy Session] Respiratory Rate Blood Pressure Pulse Oximetry Pulse Oximetry [With Activity During Therapy Session] Oxygen Delivery Oxygen Flow Rate 09/24/24 18:00 09/24/24 19:37 09/24/24 20:00 Temperature Pulse Rate 138 H 131 H 126 H Pulse Rate [With Activity During Therapy Session] Respiratory Rate 27 H Blood Pressure 128/89 Pulse Oximetry 96 Pulse Oximetry [With Activity During Therapy Session] Oxygen Delivery Oxygen Flow Rate 09/24/24 19:47 09/24/24 20:07 09/24/24 22:00 Temperature 97.9 F Pulse Rate 124 H 115 H 108 H Pulse Rate [With Activity During Therapy Session] Respiratory Rate 30 H 17 Blood Pressure 129/99 H Pulse Oximetry 97 97 Pulse Oximetry [With Activity During Therapy Session] Oxygen Delivery Nasal Cannula Oxygen Flow Rate 2 09/24/24 22:58 09/24/24 23:44 09/25/24 00:00 Temperature 97.5 F L Pulse Rate 108 H 110 H 108 H Pulse Rate [With Activity During Therapy Session] Respiratory Rate 20 18 22 H Blood Pressure 119/85 Pulse Oximetry 99 99 98 Pulse Oximetry [With Activity During Therapy Session] Oxygen Delivery Nasal Cannula Oxygen Flow Rate 2 09/25/24 00:00 09/25/24 02:00 09/25/24 04:00 Temperature Pulse Rate 115 H 105 H 122 H Pulse Rate [With Activity During Therapy Session] Respiratory Rate 20 Blood Pressure Pulse Oximetry 100 Pulse Oximetry [With Activity During Therapy Session] Oxygen Delivery Nasal Cannula Oxygen Flow Rate 2 09/25/24 04:00 09/25/24 04:00 09/25/24 04:53 Temperature 98.7 F Pulse Rate 115 H 120 H 121 H Pulse Rate [With Activity During Therapy Session] Respiratory Rate 22 H Blood Pressure 129/92 H Pulse Oximetry 100 Pulse Oximetry [With Activity During Therapy Session] Oxygen Delivery Oxygen Flow Rate 09/25/24 02:00 09/25/24 06:00 09/25/24 08:00 Temperature 98.3 F Pulse Rate 115 H 118 H 119 H Pulse Rate [With Activity During Therapy Session] Respiratory Rate 29 H 27 H Blood Pressure 109/85 Pulse Oximetry 98 100 Pulse Oximetry [With Activity During Therapy Session] Oxygen Delivery BiPAP Oxygen Flow Rate 09/25/24 08:30 09/25/24 09:13 09/25/24 09:28 Temperature Pulse Rate 122 H Pulse Rate [With Activity During Therapy Session] 120 H Respiratory Rate Blood Pressure Pulse Oximetry Pulse Oximetry [With Activity During Therapy Session] 95 Oxygen Delivery Room Air Room Air Oxygen Flow Rate 09/25/24 08:00 09/25/24 10:00 09/25/24 12:00 Temperature 97.8 F Pulse Rate 114 H 115 H 99 Pulse Rate [With Activity During Therapy Session] Respiratory Rate 28 H Blood Pressure 96/71 L Pulse Oximetry 100 Pulse Oximetry [With Activity During Therapy Session] Oxygen Delivery Oxygen Flow Rate 09/25/24 12:00 09/25/24 14:00 Temperature Pulse Rate 101 H 105 H Pulse Rate [With Activity During Therapy Session] Respiratory Rate Blood Pressure Pulse Oximetry Pulse Oximetry [With Activity During Therapy Session] Oxygen Delivery Oxygen Flow Rate Intake/Output Intake/Output: Intake & Output 09/22/24 09/23/24 09/24/24 09/25/24 23:59 23:59 23:59 23:59 Intake Total 50 2740 2560 Output Total 400 5100 2526 Balance -350 -2360 34 Meds/Results Medications: Active Medications Generic Name Dose Route Start Last Admin Trade Name Freq PRN Reason Stop Dose Admin Acetaminophen 650 mg 09/23/24 14:40 09/24/24 16:27 Acetaminophen 325 Mg Tablet PO 650 mg Q4H PRN Administration Mild Pain (1-3) or Fever Hydrocodone Bitart/Acetaminophen 1 tab 09/23/24 14:54 09/25/24 02:15 Hydrocodone/Acetaminophen (*Crx) 5-325 Mg Tablet PO 1 tab Q4H PRN Administration Moderate Pain (4-6) Clonidine HCl 0.1 mg 09/24/24 21:00 09/25/24 08:30 Clonidine Hcl 0.1 Mg Tablet PO 0.1 mg Q12H ROZINA Administration Docusate Sodium 100 mg 09/24/24 09:00 09/25/24 08:30 Docusate Sodium 100 Mg Capsule PO Not Given DAILY ROZINA Furosemide 40 mg 09/24/24 09:00 09/25/24 08:30 Furosemide Inj 40 Mg/4 Ml Vial IV PUSH 40 mg DAILY ROZINA Administration Cefepime HCl 2 gm in 50 mls @ 100 mls/hr 09/24/24 14:00 09/25/24 13:41 Maxipime 2 Gm/Ns 50 Ml IVPB Infused Q8HR ROZINA Infusion Vancomycin HCl 1,500 mg in 500 mls @ 250 mls/hr 09/24/24 21:00 09/25/24 12:04 Vancomycin 1,500 Mg/Ns 500 Ml IVPB Infused Q12H ROZINA Infusion Metronidazole 500 mg in 100 mls @ 100 mls/hr 09/24/24 16:00 09/25/24 15:43 Flagyl 500 Mg/Iso Soln 100 Ml IVPB 100 mls/hr Q8H ROZINA Administration Sodium Chloride 1,000 mls @ 50 mls/hr 09/24/24 16:35 09/24/24 16:45 Normal Saline Iv IV CONT 50 mls/hr .Q20H ROZINA Administration Albumin Human 100 mls @ 60 mls/hr 09/24/24 18:00 09/25/24 14:52 Albutein IVPB Infused Q6HR ROZINA Infusion Metoprolol Tartrate 25 mg 09/25/24 09:00 09/25/24 08:30 Metoprolol Tartrate 25 Mg Tablet PO 25 mg Q12HR ROZINA Administration Ondansetron HCl 4 mg 09/23/24 14:40 09/25/24 10:23 Ondansetron Inj 4 Mg/2 Ml Vial IV PUSH 4 mg Q4H PRN Administration Nausea Pantoprazole Sodium 40 mg 09/24/24 09:00 09/25/24 08:29 Pantoprazole Sodium Iv 40 Mg Vial IV PUSH 40 mg DAILY ROZINA Administration Perflutren Lipid Microsphere 0 ml 09/23/24 14:54 Perflutren Lipid Microspheres 1.5 Ml Vial Diluted To 10 Ml Total Volume IV PUSH 09/26/24 14:54 ONCE PRN adequate visualization Protocol Radiology Results: ITS Impressions Chest CTA 09/23/24 13:29 Impression: No evidence of pulmonary embolus, aortic dissection, or aortic aneurysm. Large bilateral pleural effusions with extensive bilateral atelectasis, especially the lower lobes, as detailed above. Extensive heterogeneous fluid in the upper abdomen, especially left upper quadrant, with extensive infiltration of the mesentery. Etiology is unclear, and is incompletely imaged on the current exam. Diagnostic considerations could include severe pancreatitis versus other etiologies for peritoneal inflammation and fluid. Carcinomatosis/neoplasm is also within the differential diagnosis. Correlate with any relevant clinical history an prior workup. Dedicated abdominal pelvic CT scan with contrast should be strongly considered to further evaluate. Thoracentesis Ultrasound 09/24/24 10:27 IMPRESSION: 1. Successful ultrasound-guided thoracentesis yielding 900 mL of ely-colored fluid. Chest X-Ray 09/24/24 10:39 IMPRESSION: 1. Small left pleural effusion with improvement status post thoracentesis. 2. Airspace opacities in the mid and lower lung zones with improvement on the left, consistent with atelectasis versus pneumonia. Abdomen CT 09/24/24 13:38 IMPRESSION: 1. 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 2. Moderate-sized pleural effusions. 3. Groundglass opacities in left lower lobe and lingula, consistent with pneumonia versus focal pulmonary edema. Labs Labs: Laboratory Results - last 24 hr 09/24/24 09/24/24 09/25/24 17:24 19:22 03:50 WBC 14.3 H RBC 2.70 L Hgb 8.1 L Hct 27.3 L MCV 101.1 H MCH 30.0 MCHC 29.7 L RDW 15.6 H Plt Count 483 H MPV 9.2 Immature Gran % (Auto) 1.3 H Neut % (Auto) 77.6 H Lymph % (Auto) 6.6 L [place] % (Auto) 8.9 H Eos % (Auto) 4.5 H Baso % (Auto) 1.1 Lymph # (Auto) 0.94 [place] # (Auto) 1.3 H Eos # (Auto) 0.6 H Baso # (Auto) 0.2 H Abs Immat Gran (auto) 0.19 H Absolute Neuts (auto) 11.1 H Absolute Nucleated RBC 0.000 Nucleated RBC % 0.0 Platelet Estimate Increased Hypochromasia 1+ Ovalocytes 1+ Schistocytes None seen Sodium 141 Potassium 3.2 L Chloride 92 L Carbon Dioxide > 40 H Anion Gap BUN 9 Creatinine 0.70 Estim Creat Clear Calc 138 Estimated GFR > 60 Glucose 130 H POC Capillary Glucose 165 H 162 H Calcium 9.3 Total Bilirubin 0.8 AST 21 ALT 26 Alkaline Phosphatase 160 H C-Reactive Protein 3.5 H Total Protein 7.0 Albumin 3.7 Procalcitonin 0.3 09/25/24 12:30 WBC RBC Hgb Hct MCV MCH MCHC RDW Plt Count MPV Immature Gran % (Auto) Neut % (Auto) Lymph % (Auto) [place] % (Auto) Eos % (Auto) Baso % (Auto) Lymph # (Auto) [place] # (Auto) Eos # (Auto) Baso # (Auto) Abs Immat Gran (auto) Absolute Neuts (auto) Absolute Nucleated RBC Nucleated RBC % Platelet Estimate Hypochromasia Ovalocytes Schistocytes Sodium Potassium Chloride Carbon Dioxide Anion Gap BUN Creatinine Estim Creat Clear Calc Estimated GFR Glucose POC Capillary Glucose 104 Calcium Total Bilirubin AST ALT Alkaline Phosphatase C-Reactive Protein Total Protein Albumin Procalcitonin Quality VTE Prophylaxis VTE prophylaxis: mechanical ordered Hospitalist MIPS Advance Care Plan I have confirmed that the patient's Advanced Care Plan is present, code status is documented, or surrogate decision maker is listed in patient medical record.: Yes Medication Reconciliation I have utilized all available resources to obtain, update and review the patients current medications (includes all prescriptions, OTC, herbals, cannabis, and nutritional supplements).: Yes
[2024-09-25 18:29] LABS: Glucose Point of Care 171 mg/dl (65-105)
[2024-09-25 20:56] LABS: Vancomycin Trough 27.4 ug/mL (10.0-20.0)
[2024-09-26] VITALS (17 sets, daily range): BP systolic 104–114; BP diastolic 65–77; PULSE 79–118; RESP 15–30; TEMP 36.8–37.7; O2SAT 95–100
[2024-09-26 00:15] LABS: Glucose Point of Care 125 mg/dl (65-105)
[2024-09-26] MEDS: ALBUMIN HUMAN 25% 25 GM/100 ML 100 ML IVPB ×4 (00:15→19:01)
[2024-09-26] MEDS: metroNIDAZOLE 500 MG/ISO 100ML 500 MG/100 ML BAG 100 MG IVPB ×2 (00:15→08:51)
[2024-09-26] MEDS: CEFEPIME 2 GM/NS 50 ML 2 GM/50 ML BAG IVPB (05:58)
[2024-09-26] MEDS: SODIUM CHLORIDE 0.9% IV 1,000 ML 50 ML IV CONT (05:59)
[2024-09-26 07:00] LABS: Basophils Absolute Auto 0.1 K/mm3 (0.0-0.1); Basophils Percent Auto 0.9 % (0.2-1.2); Eosinophils Absolute Auto 0.8 K/mm3 (0-0.3); Eosinophils Percent Auto 6.2 % (0-4.4); Hematocrit 24.4 % (42.0-52.0); Hemoglobin 7.5 g/dL (14.0-18.0); Immature Granulocyte Absolute 0.15 K/mm3 (0.00-0.031); Immature Granulocyte Percent A 1.2 % (0-0.5); Lymphocytes Absolute Auto 0.95 K/mm3 (0.9-3.2); Lymphocytes Percent Auto 7.6 % (18.3-44.2); Mean Corpuscular HGB Conc 30.7 g/dl (32-36); Mean Corpuscular Hemoglobin 30.1 pg (26-34); Mean Platelet Volume 8.7 fl (7.4-10.4); Monocytes Absolute Auto 1.1 K/mm3 (0.1-0.6); Monocytes Percent Auto 8.5 % (2.6-8.5); Neutrophils Absolute Auto 9.5 K/mm3 (1.3-6.7); Neutrophils Percent Auto 75.6 % (45.5-73.1); Platelet Count Result 419 k/mm3 (150-375); Red Blood Count 2.49 M/mm3 (4.6-6.20); Red Cell Distribution Width 15.6 % (11.5-14.5); White Blood Count 12.5 K/mm3 (4.5-10.0)
[2024-09-26 07:15] LABS: Alanine Aminotransferase 16 U/L (6-50); Albumin Level 3.7 g/dL (3.5-5.1); Alkaline Phosphatase 125 U/L (38-126); Anion Gap 5 mmol/L (4-12); Aspartate Amino Transferase 19 U/L (17-59); Bilirubin,Total 0.9 mg/dL (0.2-1.3); Blood Urea Nitrogen 8 mg/dL (9-20); Calcium 9.3 mg/dL (8.4-10.2); Carbon Dioxide 39 mmol/L (22-30); Chloride 92 mmol/L (98-107); Estimated CRCL calculation 138 ml/min; Estimated Glomerular Filt Rate > 60; Glucose 99 mg/dL (65-110); Potassium 2.8 mmol/L (3.4-5.0); Sodium 136 mmol/L (137-145)
[2024-09-26 07:22] LABS: Vancomycin Random 18.1 ug/mL (10-20)
[2024-09-26 07:46] LABS: Glucose Point of Care 153 mg/dl (65-105)
[2024-09-26] MEDS: POTASSIUM CHLORIDE INJ 40 MEQ in SODIUM CHLORIDE 0.9% IV 500 ML 130 MEQ IVPB (08:50)
[2024-09-26] MEDS: cloNIDine HCL 0.1 MG TABLET PO ×2 (08:51→20:43)
[2024-09-26] MEDS: PANTOPRAZOLE SODIUM IV 40 MG VIAL IV PUSH (08:51)
[2024-09-26] MEDS: FUROSEMIDE INJ 40 MG/4 ML VIAL IV PUSH (08:51)
[2024-09-26] MEDS: METOPROLOL TARTRATE 25 MG TABLET PO ×2 (08:51→20:42)
[2024-09-26] MEDS: DOCUSATE SODIUM 100 MG CAPSULE PO (08:51)
[2024-09-26 09:47] LABS: Magnesium 1.2 mg/dL (1.6-2.3)
[2024-09-26] MEDS: MAGNESIUM SULF 2 GM/WATER 50ML 2 GM/50 ML BAG IVPB (10:53)
[2024-09-26 11:44] LABS: Glucose Point of Care 133 mg/dl (65-105)
[2024-09-26] MEDS: KCL 20 MEQ/SW 100 ML 50 MEQ IVPB (12:51)
[2024-09-26] MEDS: PIPERACILLIN/TAZ 4.5G/NS 100ML 4.5 GM/100 ML BAG IVPB ×2 (12:58→19:01)
--- NOTE | 2024-09-26 14:15 | P.PNIM_ITS ---
Progress Note: A&P Assessment and Plan (1) Sepsis: Code(s): A41.9 - Sepsis, unspecified organism Status: Acute Assessment and Plan: Meets SIRS criteria: HR, RR, lactic, WBC - Hold Lasix for 2 days for volume expansion. Continue albumin q 6 hrs. - Need PT /OT - lactic acid: 2.2 > 1.9 > 1.2 - Patient did not receive sepsis bolus on admission, likely due to severe effusion. - He remains tachycardic into the 130s likely due to ongoing infection, given albumin 25% x1. - suspected source: pneumonia vs necrotizing pancreatitis - blood cultures drawn on 09/23: pending - Antibiotics: vancomycin, cefepime, flagyl - UA non concerning for infection - CXR 09/23: Cardiomegaly with cardiac decompensation and pulmonary edema. Bibasilar opacification suggestive of atelectasis versus pneumonia with left pleural effusion - Chest CTA 09/23: No evidence of pulmonary embolus, aortic dissection, or aortic aneurysm. Large bilateral pleural effusions with extensive bilateral atelectasis, especially the lower lobes, as detailed above. Extensive heterogeneous fluid in the upper abdomen, especially left upper quadrant, with extensive infiltration of the mesentery. Etiology is unclear, and is incompletely imaged on the current exam. Diagnostic considerations could include severe pancreatitis versus other etiologies for peritoneal inflammation and fluid. Carcinomatosis/neoplasm is also within the differential diagnosis. - Abdomen/pelvis CT 1. 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 2. Moderate-sized pleural effusions. 3. Groundglass opacities in left lower lobe and lingula, consistent with pneumonia versus focal pulmonary edema. 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 He was transferred from [facility] to [facility]. He was treated for necrotizing pancreatitis and peripancreatic fluid collection, septic shock (septicemia) requiring broad spectrum antibiotics, progressive encephalopathy requiring intubation for respiratory failure on 07/15/24. A tracheostomy was placed 07/25/24. He was transferred to higher level of care at [facility] on 08/04/24, 08/23 Patient admitted to [facility]; for ventilator weaning. He has since been decannulated and undergoing therapy at rehab. - Antibiotics: vancomycin, cefepime, Flagyl - CT abdomen/pelvis: 1. 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 2. Moderate-sized pleural effusions. 3. Ground glass opacities in left lower lobe and lingula, consistent with pneumonia versus focal pulmonary edema. - If patients WBC continues to worsen during this admission, may consider p aracentesis vs drain placement Call made to Dr. Spangler in regards to patients CT abdomen/pelvis, patient requires transfer to a tertiary facility. If patient is going to be here for a few days pending transfer consult GI. [facility] been accepted at [facility] under hospitalist, Dr. Lazo. He was wanting his pleural fluid to be tested for LDH, pH, culture, lipase, and amylase, however patients thoracentesis was not made diagnostic and per US it is out of the window to test. If patient requires another thoracentesis during this admission these labs should be obtained. (4) Pleural effusion: Code(s): J90 - Pleural effusion, not elsewhere classified Status: Acute Assessment and Plan: CXR 09/23: Cardiomegaly with cardiac decompensation and pulmonary edema. Bibasilar opacification suggestive of atelectasis versus pneumonia with left pleural effusion Chest CTA 09/23: No evidence of pulmonary embolus, aortic dissection, or aortic aneurysm. Large bilateral pleural effusions with extensive bilateral atelectasis, especially the lower lobes, as detailed above. Extensive heterogeneous fluid in the upper abdomen, especially left upper quadrant, with extensive infiltration of the mesentery. Etiology is unclear, and is incompletely imaged on the current exam. Diagnostic considerations could include severe pancreatitis versus other etiologies for peritoneal inflammation and fluid. Carcinomatosis/neoplasm is also within the differential diagnosis. CXR 09/24 during rapid response: Stable large left pleural effusion. Stable airspace opacities in right mid and lower lung zones and left lung, consistent with atelectasis versus pneumonia. - Risk Factors: recent hospitalization requiring intubation and tracheostomy - Antibiotics: Zosyn started on 09/23, transitioned to vancomycin and cefepime on 09/24 - Diuretics: Lasix 40 IV daily - Viral PCR: negative for Flu/COVID/RSV - MRSA negative - BNP elevated, Echo ordered - s/p thoracentesis on 09/24 with 900 ml removed. Post thora chest XR shows small left pleural effusion - Requiring 2L NC, resumed BIPAP given severe tachypnea and large pleural effusion. Oxygen wean as tolerated. Keep SpO2 greater than 88% - Monitor vital signs, I&Os, neuro status and patient is a fall risk - Follow WBC, serum electrolytes, temperature curves and cultures Subjective Date/time seen: 09/26/24 14:15 Interval history: Had a long conversation with his Aunt who is very close to him and actively participate in his health care. 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 Patient started drinking alcohol in his late teen and eventually became addicted. Off note: He had a complicated hospitalization starting 07/12/24 at OSH for 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 He was transferred from [facility] to [facility]. He was treated for necrotizing pancreatitis and peripancreatic fluid collection, septic shock (septicemia) requiring broad spectrum antibiotics, progressive encephalopathy requiring Intubation for respiratory failure on 07/15/24. A tracheostomy was placed 07/25/24. He was transferred to higher level of care at [facility] on 08/04/24 for necrotizing pancreatitis. 08/23 Patient admitted to [facility]; for ventilator weaning. Patient later transferred to [facility] and transferred here because of Hypoxia. Call made to Dr. Spangler during current admission in regards to patients CT abdomen/pelvis, patient requires transfer to a tertiary facility. If patient is going to be here for a few days pending transfer consult GI. Patient has been accepted at [facility] step down under hospitalist, Dr. Lazo. He was wanting his pleural fluid to be tested for LDH, pH, culture, lipase, and amylase, however patients thoracentesis was not made diagnostic and per US it is out of the window to test. If patient requires another thoracentesis during this admission these labs should be obtained. 09/26:Patient is not edematous. Patient has protein malnutrition. Hold lasix for 2 days for volume expansion. Continue albumin q 6 hrs. Need PT /OT 09/27: Patient blood pressure continues to be better. We will hold Lasix for volume expansion. With patient nasal MRSA resulted negative discontinue vancomycin and cefepime and metronidazole. Patient started on Zosyn.Replaced K and Mg Review of Systems Review of Systems: 12 systems were reviewed and are negativ e except for as per HPI. All systems reviewed & are unremarkable except as noted in HPI and below Exam Narrative: AF HR 111 RR 19 SpO2 93 2L NC BP 114/80 General: male in acute respiratory distress who is toxic appearing, lying semi recumbent in bed. HEENT: Normocephalic. Atraumatic. Extraocular movement intact. Sclera clear and anicteric. No facial asymmetry. Chest: Lungs are diminished on the right. Left lung is diminished in the uppers, crackles in the middle and no movement in the base. No wheezes. CV: Heart was tachycardic in regular rhythm. S1/S2. No murmurs, gallops, or rubs. Abd: Abdomen was soft. Nontender. Distended. Positive bowel sounds. No organomegaly or masses. Ext: No clubbing, cyanosis, or edema. 2+ DP pulses bilaterally. Neuro: Patient is alert and oriented x4. Speech is clear. Psych: Normal mood and affect. Patient is pleasant and cooperative. Skin: Warm and dry. No rashes noted. Objective Data Vital Signs Vital Signs: Vital Signs - 24 hr 09/25/24 16:00 09/25/24 16:00 09/25/24 18:00 Temperature 98.3 F Pulse Rate 111 H 109 H 121 H Respiratory Rate 26 H Blood Pressure 107/75 Pulse Oximetry 100 Oxygen Delivery 09/25/24 19:48 09/25/24 19:51 09/25/24 20:00 Temperature 98.1 F Pulse Rate 112 H 112 H 111 H Respiratory Rate 28 H 30 H Blood Pressure 113/79 Pulse Oximetry 100 98 Oxygen Delivery Room Air 09/25/24 20:09 09/25/24 22:00 09/25/24 23:44 Temperature Pulse Rate 112 H 105 H 100 Respiratory Rate 22 H Blood Pressure Pulse Oximetry 97 Oxygen Delivery Room Air 09/25/24 23:44 09/26/24 00:00 09/26/24 02:00 Temperature Pulse Rate 105 H 104 H 100 Respiratory Rate 18 Blood Pressure 104/65 Pulse Oximetry 96 Oxygen Delivery 09/25/24 21:15 09/26/24 03:51 09/26/24 03:52 Temperature Pulse Rate 111 H 104 H 104 H Respiratory Rate 30 H 18 Blood Pressure Pulse Oximetry 98 96 Oxygen Delivery Room Air Room Air 09/26/24 04:00 09/26/24 05:58 09/26/24 08:00 Temperature 98.2 F 98.8 F Pulse Rate 102 H 103 H 118 H Respiratory Rate 20 30 H Blood Pressure 106/77 114/76 Pulse Oximetry 95 99 Oxygen Delivery 09/26/24 08:51 09/26/24 08:00 09/26/24 08:00 Temperature Pulse Rate 108 H 115 H 106 H Respiratory Rate 19 Blood Pressure Pulse Oximetry 97 Oxygen Delivery Room Air 09/26/24 10:00 09/26/24 12:00 Temperature 98.6 F Pulse Rate 118 H 104 H Respiratory Rate 27 H Blood Pressure 107/72 Pulse Oximetry 100 Oxygen Delivery Intake/Output Intake/Output: Intake & Output 09/23/24 09/24/24 09/25/24 09/26/24 23:59 23:59 23:59 23:59 Intake Total 50 2840 4050 2240 Output Total 400 5100 2876 650 Balance -350 -2260 1174 1590 Meds/Results Medications: Active Medications Generic Name Dose Route Start Last Admin Trade Name Freq PRN Reason Stop Dose Admin Acetaminophen 650 mg 09/23/24 14:40 09/24/24 16:27 Acetaminophen 325 Mg Tablet PO 650 mg Q4H PRN Administration Mild Pain (1-3) or Fever Hydrocodone Bitart/Acetaminophen 1 tab 09/23/24 14:54 09/25/24 23:11 Hydrocodone/Acetaminophen (*Crx) 5-325 Mg Tablet PO 1 tab Q4H PRN Administration Moderate Pain (4-6) Clonidine HCl 0.1 mg 09/24/24 21:00 09/26/24 08:51 Clonidine Hcl 0.1 Mg Tablet PO 0.1 mg Q12H ROZINA Administration Docusate Sodium 100 mg 09/24/24 09:00 09/26/24 08:51 Docusate Sodium 100 Mg Capsule PO 100 mg DAILY ROZINA Administration Furosemide 40 mg 09/24/24 09:00 09/26/24 08:51 Furosemide Inj 40 Mg/4 Ml Vial IV PUSH 40 mg DAILY ROZINA Administration Sodium Chloride 1,000 mls @ 50 mls/hr 09/24/24 16:35 09/26/24 05:59 Normal Saline Iv IV CONT 50 mls/hr .Q20H ROZINA Administration Albumin Human 100 mls @ 60 mls/hr 09/24/24 18:00 09/26/24 13:30 Albutein IVPB Infused Q6HR ROZINA Infusion Potassium Chloride 100 mls @ 50 mls/hr 09/26/24 12:30 09/26/24 12:51 Kcl 20 Meq/Sw 100 Ml IVPB 09/26/24 14:29 50 mls/hr ONCE ONE Administration Piperacillin Sod/Tazobactam Sod 4.5 gm in 100 mls @ 200 mls/hr 09/26/24 13:00 09/26/24 13:30 Zosyn 4.5 Gm/Ns 100 Ml IVPB Infused Q6HR ROZINA Infusion Metoprolol Tartrate 25 mg 09/25/24 09:00 09/26/24 08:51 Metoprolol Tartrate 25 Mg Tablet PO 25 mg Q12HR ROZINA Administration Ondansetron HCl 4 mg 09/23/24 14:40 09/25/24 10:23 Ondansetron Inj 4 Mg/2 Ml Vial IV PUSH 4 mg Q4H PRN Administration Nausea Pantoprazole Sodium 40 mg 09/24/24 09:00 09/26/24 08:51 Pantoprazole Sodium Iv 40 Mg Vial IV PUSH 40 mg DAILY ROZINA Administration Perflutren Lipid Microsphere 0 ml 09/23/24 14:54 Perflutren Lipid Microspheres 1.5 Ml Vial Diluted To 10 Ml Total Volume IV PUSH 09/26/24 14:54 ONCE PRN adequate visualization Protocol Radiology Results: ITS Impressions Chest CTA 09/23/24 13:29 Impression: No evidence of pulmonary embolus, aortic dissection, or aortic aneurysm. Large bilateral pleural effusions with extensive bilateral atelectasis, especially the lower lobes, as detailed above. Extensive heterogeneous fluid in the upper abdomen, especially left upper quadrant, with extensive infiltration of the mesentery. Etiology is unclear, and is incompletely imaged on the current exam. Diagnostic considerations could include severe pancreatitis versus other etiologies for peritoneal inflammation and fluid. Carcinomatosis/neoplasm is also within the differential diagnosis. Correlate with any relevant clinical history an prior workup. Dedicated abdominal pelvic CT scan with contrast should be strongly considered to further evaluate. Thoracentesis Ultrasound 09/24/24 10:27 IMPRESSION: 1. Successful ultrasound-guided thoracentesis yielding 900 mL of ely-colored fluid. Chest X-Ray 09/24/24 10:39 IMPRESSION: 1. Small left pleural effusion with improvement status post thoracentesis. 2. Airspace opacities in the mid and lower lung zones with improvement on the left, consistent with atelectasis versus pneumonia. Abdomen CT 09/24/24 13:38 IMPRESSION: 1. 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 2. Moderate-sized pleural effusions. 3. Groundglass opacities in left lower lobe and lingula, consistent with pneumonia versus focal pulmonary edema. Labs Labs: Laboratory Results - last 24 hr 09/25/24 09/25/24 09/25/24 18:17 20:09 23:56 WBC RBC Hgb Hct MCV MCH MCHC RDW Plt Count MPV Immature Gran % (Auto) Neut % (Auto) Lymph % (Auto) [place] % (Auto) Eos % (Auto) Baso % (Auto) Lymph # (Auto) [place] # (Auto) Eos # (Auto) Baso # (Auto) Abs Immat Gran (auto) Absolute Neuts (auto) Absolute Nucleated RBC Nucleated RBC % Sodium Potassium Chloride Carbon Dioxide Anion Gap BUN Creatinine Estim Creat Clear Calc Estimated GFR Glucose POC Capillary Glucose 171 H 125 H Calcium Magnesium Total Bilirubin AST ALT Alkaline Phosphatase Total Protein Albumin Vancomycin Trough 27.4 H Random Vancomycin 09/26/24 09/26/24 09/26/24 06:49 06:53 07:38 WBC 12.5 H RBC 2.49 L Hgb 7.5 L Hct 24.4 L MCV 98.0 MCH 30.1 MCHC 30.7 L RDW 15.6 H Plt Count 419 H MPV 8.7 Immature Gran % (Auto) 1.2 H Neut % (Auto) 75.6 H Lymph % (Auto) 7.6 L [place] % (Auto) 8.5 Eos % (Auto) 6.2 H Baso % (Auto) 0.9 Lymph # (Auto) 0.95 [place] # (Auto) 1.1 H Eos # (Auto) 0.8 H Baso # (Auto) 0.1 Abs Immat Gran (auto) 0.15 H Absolute Neuts (auto) 9.5 H Absolute Nucleated RBC 0.000 Nucleated RBC % 0.0 Sodium 136 L Potassium 2.8 L* Chloride 92 L Carbon Dioxide 39 H Anion Gap 5 BUN 8 L Creatinine 0.70 Estim Creat Clear Calc 138 Estimated GFR > 60 Glucose 99 POC Capillary Glucose 153 H Calcium 9.3 Magnesium 1.2 L Total Bilirubin 0.9 AST 19 ALT 16 Alkaline Phosphatase 125 Total Protein 7.0 Albumin 3.7 Vancomycin Trough Random Vancomycin 18.1 09/26/24 11:39 WBC RBC Hgb Hct MCV MCH MCHC RDW Plt Count MPV Immature Gran % (Auto) Neut % (Auto) Lymph % (Auto) [place] % (Auto) Eos % (Auto) Baso % (Auto) Lymph # (Auto) [place] # (Auto) Eos # (Auto) Baso # (Auto) Abs Immat Gran (auto) Absolute Neuts (auto) Absolute Nucleated RBC Nucleated RBC % Sodium Potassium Chloride Carbon Dioxide Anion Gap BUN Creatinine Estim Creat Clear Calc Estimated GFR Glucose POC Capillary Glucose 133 H Calcium Magnesium Total Bilirubin AST ALT Alkaline Phosphatase Total Protein Albumin Vancomycin Trough Random Vancomycin Quality VTE Prophylaxis VTE prophylaxis: mechanical ordered Hospitalist MIPS Advance Care Plan I have confirmed that the patient's Advanced Care Plan is present, code status is documented, or surrogate decision maker is listed in patient medical record.: Yes Medication Reconciliation I have utilized all available resources to obtain, update and review the patients current medications (includes all prescriptions, OTC, herbals, cannabis, and nutritional supplements).: Yes
[2024-09-26 16:37] LABS: Glucose Point of Care 125 mg/dl (65-105)
[2024-09-26 18:55] LABS: Glucose Point of Care 149 mg/dl (65-105)
[2024-09-26] MEDS: HYDROcodone/acetaminophen (*CRX) 5-325 MG TABLET 1 TAB PO (20:42)
[2024-09-27] VITALS (19 sets, daily range): BP systolic 109–132; BP diastolic 70–82; PULSE 76–109; RESP 15–20; TEMP 36.7–37.4; O2SAT 92–99
[2024-09-27] MEDS: ALBUMIN HUMAN 25% 25 GM/100 ML 100 ML IVPB ×5 (00:10→23:59)
[2024-09-27] MEDS: PIPERACILLIN/TAZ 4.5G/NS 100ML 4.5 GM/100 ML BAG IVPB ×5 (00:10→23:59)
[2024-09-27] MEDS: SODIUM CHLORIDE 0.9% IV 1,000 ML 50 ML IV CONT (00:11)
[2024-09-27 05:03] LABS: Basophils Absolute Auto 0.1 K/mm3 (0.0-0.1); Basophils Percent Auto 0.9 % (0.2-1.2); Eosinophils Absolute Auto 0.8 K/mm3 (0-0.3); Eosinophils Percent Auto 6.4 % (0-4.4); Hemoglobin 7.6 g/dL (14.0-18.0); Immature Granulocyte Absolute 0.18 K/mm3 (0.00-0.031); Immature Granulocyte Percent A 1.5 % (0-0.5); Lymphocytes Absolute Auto 1.23 K/mm3 (0.9-3.2); Lymphocytes Percent Auto 10.5 % (18.3-44.2); Mean Corpuscular HGB Conc 31.7 g/dl (32-36); Mean Corpuscular Hemoglobin 30.4 pg (26-34); Mean Platelet Volume 8.9 fl (7.4-10.4); Monocytes Absolute Auto 1.1 K/mm3 (0.1-0.6); Monocytes Percent Auto 9.2 % (2.6-8.5); Neutrophils Absolute Auto 8.3 K/mm3 (1.3-6.7); Neutrophils Percent Auto 71.5 % (45.5-73.1); Platelet Count Result 436 k/mm3 (150-375); Red Cell Distribution Width 15.8 % (11.5-14.5); White Blood Count 11.7 K/mm3 (4.5-10.0)
[2024-09-27 05:28] LABS: Alanine Aminotransferase 13 U/L (6-50); Albumin Level 3.6 g/dL (3.5-5.1); Alkaline Phosphatase 124 U/L (38-126); Anion Gap 8 mmol/L (4-12); Aspartate Amino Transferase 17 U/L (17-59); Bilirubin,Total 0.9 mg/dL (0.2-1.3); Blood Urea Nitrogen 5 mg/dL (9-20); Calcium 9.2 mg/dL (8.4-10.2); Carbon Dioxide 36 mmol/L (22-30); Chloride 93 mmol/L (98-107); Estimated CRCL calculation 138 ml/min; Estimated Glomerular Filt Rate > 60; Glucose 114 mg/dL (65-110); Magnesium 1.5 mg/dL (1.6-2.3); Potassium 2.6 mmol/L (3.4-5.0); Sodium 137 mmol/L (137-145)
[2024-09-27] MEDS: POTASSIUM CHLORIDE INJ 40 MEQ in SODIUM CHLORIDE 0.9% IV 500 ML 130 MEQ IVPB ×2 (06:28→13:05)
[2024-09-27] MEDS: HYDROcodone/acetaminophen (*CRX) 5-325 MG TABLET 1 TAB PO ×2 (08:35→22:43)
[2024-09-27] MEDS: DOCUSATE SODIUM 100 MG CAPSULE PO (08:36)
[2024-09-27] MEDS: cloNIDine HCL 0.1 MG TABLET PO ×2 (08:36→20:23)
[2024-09-27] MEDS: FUROSEMIDE INJ 40 MG/4 ML VIAL IV PUSH (08:36)
[2024-09-27] MEDS: METOPROLOL TARTRATE 25 MG TABLET PO ×2 (08:37→20:23)
[2024-09-27] MEDS: PANTOPRAZOLE SODIUM IV 40 MG VIAL IV PUSH (08:37)
[2024-09-27 12:10] LABS: Potassium 2.9 mmol/L (3.4-5.0)
[2024-09-27 12:33] LABS: Magnesium 1.5 mg/dL (1.6-2.3)
[2024-09-27] MEDS: POTASSIUM CHLORIDE 20 MEQ ER TABLET 40 MEQ PO (13:05)
--- NOTE | 2024-09-27 14:02 | PM.IMPN ---
Progress Note: A&P Assessment and Plan (1) Sepsis: Code(s): A41.9 - Sepsis, unspecified organism Status: Acute Assessment and Plan: Meets SIRS criteria: HR, RR, lactic, WBC - Hold Lasix for 2 days for volume expansion. Continue albumin q 6 hrs. - Need PT /OT - lactic acid: 2.2 > 1.9 > 1.2 - Patient did not receive sepsis bolus on admission, likely due to severe effusion. - He remains tachycardic into the 130s likely due to ongoing infection, given albumin 25% x1. - suspected source: pneumonia vs necrotizing pancreatitis - blood cultures drawn on 09/23: pending - Antibiotics: vancomycin, cefepime, flagyl - UA non concerning for infection - CXR 09/23: Cardiomegaly with cardiac decompensation and pulmonary edema. Bibasilar opacification suggestive of atelectasis versus pneumonia with left pleural effusion - Chest CTA 09/23: No evidence of pulmonary embolus, aortic dissection, or aortic aneurysm. Large bilateral pleural effusions with extensive bilateral atelectasis, especially the lower lobes, as detailed above. Extensive heterogeneous fluid in the upper abdomen, especially left upper quadrant, with extensive infiltration of the mesentery. Etiology is unclear, and is incompletely imaged on the current exam. Diagnostic considerations could include severe pancreatitis versus other etiologies for peritoneal inflammation and fluid. Carcinomatosis/neoplasm is also within the differential diagnosis. - Abdomen/pelvis CT 1. 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 2. Moderate-sized pleural effusions. 3. Groundglass opacities in left lower lobe and lingula, consistent with pneumonia versus focal pulmonary edema. 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 He was transferred from [facility] to [facility]. He was treated for necrotizing pancreatitis and peripancreatic fluid collection, septic shock (septicemia) requiring broad spectrum antibiotics, progressive encephalopathy requiring intubation for respiratory failure on 07/15/24. A tracheostomy was placed 07/25/24. He was transferred to higher level of care at [facility] on 08/04/24, 08/23 Patient admitted to [facility]; for ventilator weaning. He has since been decannulated and undergoing therapy at rehab. - Antibiotics: vancomycin, cefepime, Flagyl - CT abdomen/pelvis: 1. 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 2. Moderate-sized pleural effusions. 3. Ground glass opacities in left lower lobe and lingula, consistent with pneumonia versus focal pulmonary edema. - If patients WBC continues to worsen during this admission, may consider paracentesis vs drain placement Call made to Dr. Spangler in regards to patients CT abdomen/pelvis, patient requires transfer to a tertiary facility. If patient is going to be here for a few days pending transfer consult GI. Patient has been accepted at [facility] under hospitalist, Dr. Lazo. He was wanting his pleural fluid to be tested for LDH, pH, culture, lipase, and amylase, however patients thoracentesis was not made diagnostic and per US it is out of the window to test. If patient requires another thoracentesis during this admission these labs should be obtained. (4) Pleural effusion: Code(s): J90 - Pleural effusion, not elsewhere classified Status: Acute Assessment and Plan: CXR 09/23: Cardiomegaly with cardiac decompensation and pulmonary edema. Bibasilar opacification suggestive of atelectasis versus pneumonia with left pleural effusion Chest CTA 09/23: No evidence of pulmonary embolus, aortic dissection, or aortic aneurysm. Large bilateral pleural effusions with extensive bilateral atelectasis, especially the lower lobes, as detailed above. Extensive heterogeneous fluid in the upper abdomen, especially left upper quadrant, with extensive infiltration of the mesentery. Etiology is unclear, and is incompletely imaged on the current exam. Diagnostic considerations could include severe pancreatitis versus other etiologies for peritoneal inflammation and fluid. Carcinomatosis/neoplasm is also within the differential diagnosis. CXR 09/24 during rapid response: Stable large left pleural effusion. Stable airspace opacities in right mid and lower lung zones and left lung, consistent with atelectasis versus pneumonia. - Risk Factors: recent hospitalization requiring intubation and tracheostomy - Antibiotics: Zosyn started on 09/23, transitioned to vancomycin and cefepime on 09/24 - Diuretics: Lasix 40 IV daily - Viral PCR: negative for Flu/COVID/RSV - MRSA negative - BNP elevated, Echo ordered - s/p thoracentesis on 09/24 with 900 ml removed. Post thora chest XR shows small left pleural effusion - Requiring 2L NC, resumed BIPAP given severe tachypnea and large pleural effusion. Oxygen wean as tolerated. Keep SpO2 greater than 88% - Monitor vital signs, I&Os, neuro status and patient is a fall risk - Follow WBC, serum electrolytes, temperature curves and cultures Subjective Date/time seen: 09/27/24 14:02 Interval history: Replaced potassium and magnesium. Pending transfer to [facility]. Yesterday deescalated antibiotic. Review of Systems Review of Systems: 12 systems were reviewed and are negative except for as per HPI. All systems reviewed & are unremarkable except as noted in HPI and below Exam Narrative: AF HR 111 RR 19 SpO2 93 2L NC BP 114/80 General: male in acute respiratory distress who is toxic appearing, lying semi recumbent in bed. HEENT: Normocephalic. Atraumatic. Extraocular movement intact. Sclera clear and anicteric. No facial asymmetry. Chest: Lungs are diminished on the right. Left lung is diminished in the uppers, crackles in the middle and no movement in the base. No wheezes. CV: Heart was tachycardic in regular rhythm. S1/S2. No murmurs, gallops, or rubs. Abd: Abdomen was soft. Nontender. Distended. Positive bowel sounds. No organomegaly or masses. Ext: No clubbing, cyanosis, or edema. 2+ DP pulses bilaterally. Neuro: Patient is alert and oriented x4. Speech is clear. Psych: Normal mood and affect. Patient is pleasant and cooperative. Skin: Warm and dry. No rashes noted. Objective Data Vital Signs Vital Signs: Vital Signs - 24 hr 09/26/24 16:00 09/26/24 16:00 09/26/24 16:00 Temperature 98.7 F Pulse Rate 79 80 105 H Respiratory Rate 23 H 20 Blood Pressure 109/70 Pulse Oximetry 97 Oxygen Delivery Room Air Fraction of Inspired Oxygen 09/26/24 19:59 09/26/24 20:42 09/26/24 20:00 Temperature 99.8 F H Pulse Rate 108 H 100 106 H Respiratory Rate 16 Blood Pressure 112/68 Pulse Oximetry 99 Oxygen Delivery Fraction of Inspired Oxygen 09/26/24 20:00 09/26/24 22:00 09/26/24 23:56 Temperature 99.2 F Pulse Rate 106 H 94 100 Respiratory Rate 16 15 Blood Pressure 111/65 Pulse Oximetry 99 98 Oxygen Delivery Room Air Fraction of Inspired Oxygen 09/27/24 00:00 09/27/24 00:00 09/27/24 01:58 Temperature Pulse Rate 102 H 102 H 102 H Respiratory Rate 15 Blood Pressure Pulse Oximetry 98 Oxygen Delivery Room Air Fraction of Inspired Oxygen 09/27/24 03:49 09/27/24 03:49 09/27/24 04:00 Temperature 99.3 F Pulse Rate 105 H 105 H 106 H Respiratory Rate 15 20 Blood Pressure 119/70 Pulse Oximetry 98 99 Oxygen Delivery Room Air Fraction of Inspired Oxygen 09/27/24 05:55 09/27/24 07:30 09/27/24 08:37 Temperature 98.1 F Pulse Rate 98 102 H 109 H Respiratory Rate 20 Blood Pressure 132/82 Pulse Oximetry 92 Oxygen Delivery Fraction of Inspired Oxygen 09/27/24 11:49 09/27/24 08:00 09/27/24 10:00 Temperature 98.2 F Pulse Rate 88 109 H 94 Respiratory Rate 20 Blood Pressure 109/73 Pulse Oximetry 99 Oxygen Delivery Fraction of Inspired Oxygen 09/27/24 08:00 09/27/24 12:00 09/27/24 12:00 Temperature Pulse Rate 102 H 99 88 Respiratory Rate 20 20 Blood Pressure Pulse Oximetry 92 99 Oxygen Delivery Room Air Room Air Fraction of Inspired Oxygen Intake/Output Intake/Output: Intake & Output 09/24/24 09/25/24 09/26/24 09/27/24 23:59 23:59 23:59 23:59 Intake Total 2840 4050 3170 3065 Output Total 5100 2876 3175 3450 Balance -2260 1174 -5 -385 Meds/Results Medications: Active Medications Generic Name Dose Route Start Last Admin Trade Name Freq PRN Reason Stop Dose Admin Acetaminophen 650 mg 09/23/24 14:40 09/24/24 16:27 Acetaminophen 325 Mg Tablet PO 650 mg Q4H PRN Administration Mild Pain (1-3) or Fever Hydrocodone Bitart/Acetaminophen 1 tab 09/23/24 14:54 09/27/24 08:35 Hydrocodone/Acetaminophen (*Crx) 5-325 Mg Tablet PO 1 tab Q4H PRN Administration Moderate Pain (4-6) Clonidine HCl 0.1 mg 09/24/24 21:00 09/27/24 08:36 Clonidine Hcl 0.1 Mg Tablet PO 0.1 mg Q12H ROZINA Administration Docusate Sodium 100 mg 09/24/24 09:00 09/27/24 08:36 Docusate Sodium 100 Mg Capsule PO 100 mg DAILY ROZINA Administration Furosemide 40 mg 09/24/24 09:00 09/27/24 08:36 Furosemide Inj 40 Mg/4 Ml Vial IV PUSH 40 mg DAILY ROZINA Administration Sodium Chloride 1,000 mls @ 50 mls/hr 09/24/24 16:35 09/27/24 00:11 Normal Saline Iv IV CONT 50 mls/hr .Q20H ROZINA Administration Albumin Human 100 mls @ 60 mls/hr 09/24/24 18:00 09/27/24 11:13 Albutein IVPB 60 mls/hr Q6HR ROZINA Administration Piperacillin Sod/Tazobactam Sod 4.5 gm in 100 mls @ 200 mls/hr 09/26/24 13:00 09/27/24 11:13 Zosyn 4.5 Gm/Ns 100 Ml IVPB 200 mls/hr Q6HR ROZINA Administration Potassium Chloride 40 meq/ 520 mls @ 130 mls/hr 09/27/24 12:19 09/27/24 13:05 Sodium Chloride IVPB 09/27/24 16:18 130 mls/hr ONCE ONE Administration Metoprolol Tartrate 25 mg 09/25/24 09:00 09/27/24 08:37 Metoprolol Tartrate 25 Mg Tablet PO 25 mg Q12HR ROZINA Administration Ondansetron HCl 4 mg 09/23/24 14:40 09/25/24 10:23 Ondansetron Inj 4 Mg/2 Ml Vial IV PUSH 4 mg Q4H PRN Administration Nausea Pantoprazole Sodium 40 mg 09/24/24 09:00 09/27/24 08:37 Pantoprazole Sodium Iv 40 Mg Vial IV PUSH 40 mg DAILY ROZINA Administration Radiology Results: ITS Impressions Chest CTA 09/23/24 13:29 Impression: No evidence of pulmonary embolus, aortic dissection, or aortic aneurysm. Large bilateral pleural effusions with extensive bilateral atelectasis, especially the lower lobes, as detailed above. Extensive heterogeneous fluid in the upper abdomen, especially left upper quadrant, with extensive infiltration of the mesentery. Etiology is unclear, and is incompletely imaged on the current exam. Diagnostic considerations could include severe pancreatitis versus other etiologies for peritoneal inflammation and fluid. Carcinomatosis/neoplasm is also within the differential diagnosis. Correlate with any relevant clinical history an prior workup. Dedicated abdominal pelvic CT scan with contrast should be strongly considered to further evaluate. Thoracentesis Ultrasound 09/24/24 10:27 IMPRESSION: 1. Successful ultrasound-guided thoracentesis yielding 900 mL of ely-colored fluid. Chest X-Ray 09/24/24 10:39 IMPRESSION: 1. Small left pleural effusion with improvement status post thoracentesis. 2. Airspace opacities in the mid and lower lung zones with improvement on the left, consistent with atelectasis versus pneumonia. Abdomen CT 09/24/24 13:38 IMPRESSION: 1. 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 2. Moderate-sized pleural effusions. 3. Groundglass opacities in left lower lobe and lingula, consistent with pneumonia versus focal pulmonary edema. Labs Labs: Laboratory Results - last 24 hr 09/26/24 09/26/24 09/27/24 16:29 18:50 04:47 WBC 11.7 H RBC 2.50 L Hgb 7.6 L Hct 24.0 L MCV 96.0 MCH 30.4 MCHC 31.7 L RDW 15.8 H Plt Count 436 H MPV 8.9 Immature Gran % (Auto) 1.5 H Neut % (Auto) 71.5 Lymph % (Auto) 10.5 L Saline % (Auto) 9.2 H Eos % (Auto) 6.4 H Baso % (Auto) 0.9 Lymph # (Auto) 1.23 Saline # (Auto) 1.1 H Eos # (Auto) 0.8 H Baso # (Auto) 0.1 Abs Immat Gran (auto) 0.18 H Absolute Neuts (auto) 8.3 H Absolute Nucleated RBC 0.000 Nucleated RBC % 0.0 Sodium 137 Potassium 2.6 L* Chloride 93 L Carbon Dioxide 36 H Anion Gap 8 BUN 5 L Creatinine 0.70 Estim Creat Clear Calc 138 Estimated GFR > 60 Glucose 114 H POC Capillary Glucose 125 H 149 H Calcium 9.2 Magnesium 1.5 L Total Bilirubin 0.9 AST 17 ALT 13 Alkaline Phosphatase 124 Total Protein 6.0 L Albumin 3.6 09/27/24 11:58 WBC RBC Hgb Hct MCV MCH MCHC RDW Plt Count MPV Immature Gran % (Auto) Neut % (Auto) Lymph % (Auto) Saline % (Auto) Eos % (Auto) Baso % (Auto) Lymph # (Auto) Saline # (Auto) Eos # (Auto) Baso # (Auto) Abs Immat Gran (auto) Absolute Neuts (auto) Absolute Nucleated RBC Nucleated RBC % Sodium Potassium 2.9 L Chloride Carbon Dioxide Anion Gap BUN Creatinine Estim Creat Clear Calc Estimated GFR Glucose POC Capillary Glucose Calcium Magnesium 1.5 L Total Bilirubin AST ALT Alkaline Phosphatase Total Protein Albumin Quality VTE Prophylaxis VTE prophylaxis: mechanical ordered Hospitalist MIPS Advance Care Plan I have confirmed that the patient's Advanced Care Plan is present, code status is documented, or surrogate decision maker is listed in patient medical record.: Yes Medication Reconciliation I have utilized all available resources to obtain, update and review the patients current medications (includes all prescriptions, OTC, herbals, cannabis, and nutritional supplements).: Yes
[2024-09-27] MEDS: MAGNESIUM SULF 2 GM/WATER 50ML 2 GM/50 ML BAG IVPB (15:16)
[2024-09-27 18:24] LABS: Potassium 3.5 mmol/L (3.4-5.0)
[2024-09-28] VITALS (17 sets, daily range): BP systolic 113–136; BP diastolic 73–86; PULSE 77–104; RESP 15–20; TEMP 36.3–36.8; O2SAT 93–99
[2024-09-28 04:56] LABS: Basophils Absolute Auto 0.1 K/mm3 (0.0-0.1); Basophils Percent Auto 1.1 % (0.2-1.2); Eosinophils Absolute Auto 0.7 K/mm3 (0-0.3); Eosinophils Percent Auto 6.4 % (0-4.4); Hematocrit 24.9 % (42.0-52.0); Hemoglobin 7.9 g/dL (14.0-18.0); Immature Granulocyte Absolute 0.13 K/mm3 (0.00-0.031); Immature Granulocyte Percent A 1.3 % (0-0.5); Lymphocytes Absolute Auto 1.24 K/mm3 (0.9-3.2); Lymphocytes Percent Auto 12.3 % (18.3-44.2); Mean Corpuscular HGB Conc 31.7 g/dl (32-36); Mean Corpuscular Hemoglobin 30.5 pg (26-34); Mean Corpuscular Volume 96.1 fl (80-100); Mean Platelet Volume 8.9 fl (7.4-10.4); Monocytes Absolute Auto 0.9 K/mm3 (0.1-0.6); Monocytes Percent Auto 8.7 % (2.6-8.5); Neutrophils Absolute Auto 7.1 K/mm3 (1.3-6.7); Neutrophils Percent Auto 70.2 % (45.5-73.1); Platelet Count Result 488 k/mm3 (150-375); Red Blood Count 2.59 M/mm3 (4.6-6.20); White Blood Count 10.1 K/mm3 (4.5-10.0)
[2024-09-28 05:08] LABS: Alanine Aminotransferase 11 U/L (6-50); Alkaline Phosphatase 104 U/L (38-126); Anion Gap 9 mmol/L (4-12); Aspartate Amino Transferase 17 U/L (17-59); Bilirubin,Total 0.9 mg/dL (0.2-1.3); Blood Urea Nitrogen 3 mg/dL (9-20); Calcium 9.8 mg/dL (8.4-10.2); Carbon Dioxide 34 mmol/L (22-30); Chloride 96 mmol/L (98-107); Estimated CRCL calculation 159 ml/min; Estimated Glomerular Filt Rate > 60; Glucose 97 mg/dL (65-110); Potassium 3.1 mmol/L (3.4-5.0); Sodium 139 mmol/L (137-145)
[2024-09-28] MEDS: ALBUMIN HUMAN 25% 25 GM/100 ML 100 ML IVPB ×3 (06:28→18:12)
[2024-09-28] MEDS: SODIUM CHLORIDE 0.9% IV 1,000 ML 50 ML IV CONT (06:29)
[2024-09-28] MEDS: PIPERACILLIN/TAZ 4.5G/NS 100ML 4.5 GM/100 ML BAG IVPB ×3 (06:29→18:12)
[2024-09-28 07:58] LABS: Magnesium 1.6 mg/dL (1.6-2.3)
[2024-09-28] MEDS: METOPROLOL TARTRATE 25 MG TABLET PO ×2 (08:28→20:46)
[2024-09-28] MEDS: DOCUSATE SODIUM 100 MG CAPSULE PO (08:29)
[2024-09-28] MEDS: PANTOPRAZOLE SODIUM IV 40 MG VIAL IV PUSH (08:29)
[2024-09-28] MEDS: cloNIDine HCL 0.1 MG TABLET PO ×2 (08:29→20:46)
[2024-09-28] MEDS: ACETAMINOPHEN 325 MG TABLET 650 MG PO (08:29)
--- NOTE | 2024-09-28 08:47 | P.PNIM_ITS ---
Progress Note: A&P Assessment and Plan (1) Sepsis: Code(s): A41.9 - Sepsis, unspecified organism Status: Acute Assessment and Plan: Meets SIRS criteria: HR, RR, lactic, WBC - Hold Lasix for 2 days for volume expansion. Continue albumin q 6 hrs. - Need PT /OT - lactic acid: 2.2 > 1.9 > 1.2 - Patient did not receive sepsis bolus on admission, likely due to severe effusion. - He remains tachycardic into the 130s likely due to ongoing infection, given albumin 25% x1. - suspected source: pneumonia vs necrotizing pancreatitis - blood cultures drawn on 09/23: pending - Antibiotics: vancomycin, cefepime, flagyl - UA non concerning for infection - CXR 09/23: Cardiomegaly with cardiac decompensation and pulmonary edema. Bibasilar opacification suggestive of atelectasis versus pneumonia with left pleural effusion - Chest CTA 09/23: No evidence of pulmonary embolus, aortic dissection, or aortic aneurysm. Large bilateral pleural effusions with extensive bilateral atelectasis, especially the lower lobes, as detailed above. Extensive heterogeneous fluid in the upper abdomen, especially left upper quadrant, with extensive infiltration of the mesentery. Etiology is unclear, and is incompletely imaged on the current exam. Diagnostic considerations could include severe pancreatitis versus other etiologies for peritoneal inflammation and fluid. Carcinomatosis/neoplasm is also within the differential diagnosis. - Abdomen/pelvis CT 1. 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 2. Moderate-sized pleural effusions. 3. Groundglass opacities in left lower lobe and lingula, consistent with pneumonia versus focal pulmonary edema. 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 He was transferred from [facility] to [facility]. He was treated for necrotizing pancreatitis and peripancreatic fluid collection, septic shock (septicemia) requiring broad spectrum antibiotics, progressive encephalopathy requiring intubation for respiratory failure on 07/15/24. A tracheostomy was placed 07/25/24. He was transferred to higher level of care at [facility] on 08/04/24, 08/23 Patient admitted to [facility]; for ventilator weaning. He has since been decannulated and undergoing therapy at rehab. - Antibiotics: vancomycin, cefepime, Flagyl - CT abdomen/pelvis: 1. 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 2. Moderate-sized pleural effusions. 3. Ground glass opacities in left lower lobe and lingula, consistent with pneumonia versus focal pulmonary edema. - If patients WBC continues to worsen during this admission, may consider p aracentesis vs drain placement Call made to Dr. Spangler in regards to patients CT abdomen/pelvis, patient requires transfer to a tertiary facility. If patient is going to be here for a few days pending transfer consult GI. Patient has been accepted at [facility] under hospitalist, Dr. Lazo. He was wanting his pleural fluid to be tested for LDH, pH, culture, lipase, and amylase, however patients thoracentesis was not made diagnostic and per US it is out of the window to test. If patient requires another thoracentesis during this admission these labs should be obtained. (4) Pleural effusion: Code(s): J90 - Pleural effusion, not elsewhere classified Status: Acute Assessment and Plan: CXR 09/23: Cardiomegaly with cardiac decompensation and pulmonary edema. Bibasilar opacification suggestive of atelectasis versus pneumonia with left pleural effusion Chest CTA 09/23: No evidence of pulmonary embolus, aortic dissection, or aortic aneurysm. Large bilateral pleural effusions with extensive bilateral atelectasis, especially the lower lobes, as detailed above. Extensive heterogeneous fluid in the upper abdomen, especially left upper quadrant, with extensive infiltration of the mesentery. Etiology is unclear, and is incompletely imaged on the current exam. Diagnostic considerations could include severe pancreatitis versus other etiologies for peritoneal inflammation and fluid. Carcinomatosis/neoplasm is also within the differential diagnosis. CXR 09/24 during rapid response: Stable large left pleural effusion. Stable airspace opacities in right mid and lower lung zones and left lung, consistent with atelectasis versus pneumonia. - Risk Factors: recent hospitalization requiring intubation and tracheostomy - Antibiotics: Zosyn started on 09/23, transitioned to vancomycin and cefepime on 09/24 - Diuretics: Lasix 40 IV daily - Viral PCR: negative for Flu/COVID/RSV - MRSA negative - BNP elevated, Echo ordered - s/p thoracentesis on 09/24 with 900 ml removed. Post thora chest XR shows small left pleural effusion - Requiring 2L NC, resumed BIPAP given severe tachypnea and large pleural effusion. Oxygen wean as tolerated. Keep SpO2 greater than 88% - Monitor vital signs, I&Os, neuro status and patient is a fall risk - Follow WBC, serum electrolytes, temperature curves and cultures Subjective Date/time seen: 09/28/24 08:47 Interval history: Replaced K 80meg and Mag 2g. No acute events overnight. tolerates food well. Pending transfer Review of Systems Review of Systems: 12 systems were reviewed and are negativ e except for as per HPI. All systems reviewed & are unremarkable except as noted in HPI and below Exam Narrative: AF HR 111 RR 19 SpO2 93 2L NC BP 114/80 General: male in acute respiratory distress who is toxic appearing, lying semi recumbent in bed. HEENT: Normocephalic. Atraumatic. Extraocular movement intact. Sclera clear and anicteric. No facial asymmetry. Chest: Lungs are diminished on the right. Left lung is diminished in the uppers, crackles in the middle and no movement in the base. No wheezes. CV: Heart was tachycardic in regular rhythm. S1/S2. No murmurs, gallops, or rubs. Abd: Abdomen was soft. Nontender. Distended. Positive bowel sounds. No organomegaly or masses. Ext: No clubbing, cyanosis, or edema. 2+ DP pulses bilaterally. Neuro: Patient is alert and oriented x4. Speech is clear. Psych: Normal mood and affect. Patient is pleasant and cooperative. Skin: Warm and dry. No rashes noted. Objective Data Vital Signs Vital Signs: Vital Signs - 24 hr 09/27/24 11:49 09/27/24 10:00 09/27/24 12:00 Temperature 98.2 F Pulse Rate 88 94 99 Respiratory Rate 20 Blood Pressure 109/73 Pulse Oximetry 99 Oxygen Delivery Fraction of Inspired Oxygen 09/27/24 12:00 09/27/24 14:00 09/27/24 15:53 Temperature 98.4 F Pulse Rate 88 97 88 Respiratory Rate 20 20 Blood Pressure 115/73 Pulse Oximetry 99 98 Oxygen Delivery Room Air Fraction of Inspired Oxygen 09/27/24 16:00 09/27/24 16:00 09/27/24 18:00 Temperature Pulse Rate 89 99 Respiratory Rate Blood Pressure Pulse Oximetry Oxygen Delivery Room Air Fraction of Inspired Oxygen 09/27/24 19:42 09/27/24 20:23 09/27/24 20:00 Temperature 98.1 F Pulse Rate 76 100 94 Respiratory Rate 15 15 Blood Pressure 117/76 Pulse Oximetry 97 97 Oxygen Delivery Room Air Fraction of Inspired Oxygen 09/27/24 20:00 09/27/24 22:00 09/28/24 00:00 Temperature Pulse Rate 94 88 78 Respiratory Rate 15 Blood Pressure Pulse Oximetry 97 Oxygen Delivery Room Air Fraction of Inspired Oxygen 09/28/24 00:00 09/28/24 00:00 09/28/24 02:00 Temperature 98 F Pulse Rate 78 95 90 Respiratory Rate 16 Blood Pressure 118/73 Pulse Oximetry 97 Oxygen Delivery Fraction of Inspired Oxygen 09/28/24 04:00 09/28/24 04:00 09/28/24 04:00 Temperature 98.2 F Pulse Rate 100 100 88 Respiratory Rate 16 16 Blood Pressure 127/78 Pulse Oximetry 97 97 Oxygen Delivery Room Air Fraction of Inspired Oxygen 09/28/24 05:40 09/28/24 07:15 09/28/24 07:10 Temperature 98.2 F Pulse Rate 90 100 100 Respiratory Rate 18 18 Blood Pressure 136/86 Pulse Oximetry 93 93 Oxygen Delivery Room Air Fraction of Inspired Oxygen 09/28/24 08:28 Temperature Pulse Rate 86 Respiratory Rate Blood Pressure Pulse Oximetry Oxygen Delivery Fraction of Inspired Oxygen Intake/Output Intake/Output: Intake & Output 09/25/24 09/26/24 09/27/24 09/28/24 23:59 23:59 23:59 23:59 Intake Total 4050 3170 3685 2280 Output Total 8155 3281 0818 450 Balance 1174 -7 -9563 1830 Meds/Results Medications: Active Medications Generic Name Dose Route Start Last Admin Trade Name Freq PRN Reason Stop Dose Admin Acetaminophen 650 mg 09/23/24 14:40 09/28/24 08:29 Acetaminophen 325 Mg Tablet PO 650 mg Q4H PRN Administration Mild Pain (1-3) or Fever Hydrocodone Bitart/Acetaminophen 1 tab 09/23/24 14:54 09/27/24 22:43 Hydrocodone/Acetaminophen (*Crx) 5-325 Mg Tablet PO 1 tab Q4H PRN Administration Moderate Pain (4-6) Clonidine HCl 0.1 mg 09/24/24 21:00 09/28/24 08:29 Clonidine Hcl 0.1 Mg Tablet PO 0.1 mg Q12H ROZINA Administration Docusate Sodium 100 mg 09/24/24 09:00 09/28/24 08:29 Docusate Sodium 100 Mg Capsule PO 100 mg DAILY ROZINA Administration Furosemide 40 mg 09/24/24 09:00 09/27/24 08:36 Furosemide Inj 40 Mg/4 Ml Vial IV PUSH 40 mg DAILY ROZINA Administration Sodium Chloride 1,000 mls @ 50 mls/hr 09/24/24 16:35 09/28/24 06:29 Normal Saline Iv IV CONT 50 mls/hr .Q20H ROZINA Administration Albumin Human 100 mls @ 60 mls/hr 09/24/24 18:00 09/28/24 06:28 Albutein IVPB 60 mls/hr Q6HR ROZINA Administration Piperacillin Sod/Tazobactam Sod 4.5 gm in 100 mls @ 200 mls/hr 09/26/24 13:00 09/28/24 06:29 Zosyn 4.5 Gm/Ns 100 Ml IVPB 200 mls/hr Q6HR ROZINA Administration Magnesium Sulfate 2 gm in 50 mls @ 25 mls/hr 09/28/24 08:31 Magnesium Sulf 2 Gm/Water 50ml IVPB 09/28/24 10:30 ONCE ONE Metoprolol Tartrate 25 mg 09/25/24 09:00 09/28/24 08:28 Metoprolol Tartrate 25 Mg Tablet PO 25 mg Q12HR ROZINA Administration Ondansetron HCl 4 mg 09/23/24 14:40 09/25/24 10:23 Ondansetron Inj 4 Mg/2 Ml Vial IV PUSH 4 mg Q4H PRN Administration Nausea Pantoprazole Sodium 40 mg 09/24/24 09:00 09/28/24 08:29 Pantoprazole Sodium Iv 40 Mg Vial IV PUSH 40 mg DAILY ROZINA Administration Radiology Results: ITS Impressions Chest CTA 09/23/24 13:29 Impression: No evidence of pulmonary embolus, aortic dissection, or aortic aneurysm. Large bilateral pleural effusions with extensive bilateral atelectasis, especially the lower lobes, as detailed above. Extensive heterogeneous fluid in the upper abdomen, especially left upper quadrant, with extensive infiltration of the mesentery. Etiology is unclear, and is incompletely imaged on the current exam. Diagnostic considerations could include severe pancreatitis versus other etiologies for peritoneal inflammation and fluid. Carcinomatosis/neoplasm is also within the differential diagnosis. Correlate with any relevant clinical history an prior workup. Dedicated abdominal pelvic CT scan with contrast should be strongly considered to further evaluate. Thoracentesis Ultrasound 09/24/24 10:27 IMPRESSION: 1. Successful ultrasound-guided thoracentesis yielding 900 mL of ely-colored fluid. Chest X-Ray 09/24/24 10:39 IMPRESSION: 1. Small left pleural effusion with improvement status post thoracentesis. 2. Airspace opacities in the mid and lower lung zones with improvement on the left, consistent with atelectasis versus pneumonia. Abdomen CT 09/24/24 13:38 IMPRESSION: 1. 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 2. Moderate-sized pleural effusions. 3. Groundglass opacities in left lower lobe and lingula, consistent with pneumonia versus focal pulmonary edema. Labs Labs: Laboratory Results - last 24 hr 09/27/24 09/27/24 09/28/24 11:58 18:15 04:42 WBC 10.1 H RBC 2.59 L Hgb 7.9 L Hct 24.9 L MCV 96.1 MCH 30.5 MCHC 31.7 L RDW 16.0 H Plt Count 488 H MPV 8.9 Immature Gran % (Auto) 1.3 H Neut % (Auto) 70.2 Lymph % (Auto) 12.3 L [place] % (Auto) 8.7 H Eos % (Auto) 6.4 H Baso % (Auto) 1.1 Lymph # (Auto) 1.24 [place] # (Auto) 0.9 H Eos # (Auto) 0.7 H Baso # (Auto) 0.1 Abs Immat Gran (auto) 0.13 H Absolute Neuts (auto) 7.1 H Absolute Nucleated RBC 0.000 Nucleated RBC % 0.0 Sodium 139 Potassium 2.9 L 3.5 3.1 L Chloride 96 L Carbon Dioxide 34 H Anion Gap 9 BUN 3 L Creatinine 0.60 L Estim Creat Clear Calc 159 Estimated GFR > 60 Glucose 97 Calcium 9.8 Magnesium 1.5 L Total Bilirubin 0.9 AST 17 ALT 11 Alkaline Phosphatase 104 Total Protein 7.0 Albumin 4.0 09/28/24 07:41 WBC RBC Hgb Hct MCV MCH MCHC RDW Plt Count MPV Immature Gran % (Auto) Neut % (Auto) Lymph % (Auto) [place] % (Auto) Eos % (Auto) Baso % (Auto) Lymph # (Auto) [place] # (Auto) Eos # (Auto) Baso # (Auto) Abs Immat Gran (auto) Absolute Neuts (auto) Absolute Nucleated RBC Nucleated RBC % Sodium Potassium Chloride Carbon Dioxide Anion Gap BUN Creatinine Estim Creat Clear Calc Estimated GFR Glucose Calcium Magnesium 1.6 Total Bilirubin AST ALT Alkaline Phosphatase Total Protein Albumin Hospitalist MIPS Advance Care Plan I have confirmed that the patient's Advanced Care Plan is present, code status is documented, or surrogate decision maker is listed in patient medical record.: Yes Medication Reconciliation I have utilized all available resources to obtain, update and review the patients current medications (includes all prescriptions, OTC, herbals, cannabis, and nutritional supplements).: Yes
[2024-09-28] MEDS: MAGNESIUM SULF 2 GM/WATER 50ML 2 GM/50 ML BAG IVPB (09:05)
[2024-09-28] MEDS: POTASSIUM CHLORIDE 20 MEQ ER TABLET 80 MEQ PO (09:06)
[2024-09-28 15:35] LABS: Potassium 3.7 mmol/L (3.4-5.0)
[2024-09-28] MEDS: HYDROcodone/acetaminophen (*CRX) 5-325 MG TABLET 1 TAB PO (20:44)
--- NOTE | 2024-09-30 18:33 | P.TS_ITS ---
Transfer Discharge Sum: Prov Provider Date of admission: 09/23/24 16:01 Primary care physician: UNKNOWN,DOCTOR Admitting clinician: Demarco Cordova MD Consults: 09/23/24 18:22 Consult to Physician Routine Comment: Spoke to exchange 09/23 [phone] (-) Consulting Provider: Yandel Herrera mobile sales technician/MD group to consult: Sharon Reason for consultation: Cardiomegaly, echo read pending Has provider been notified: Yes DS: Admitting Diagnosis Discharge Date 09/28/24 Admitting Diagnosis Hypoxia DS: Discharge Diagnosis Discharge Diagnosis (1) Sepsis: Code(s): A41.9 - Sepsis, unspecified organism Status: Acute Assessment and Plan: Meets SIRS criteria: HR, RR, lactic, WBC - Hold Lasix for 2 days for volume expansion. Continue albumin q 6 hrs. - Need PT /OT - lactic acid: 2.2 > 1.9 > 1.2 - Patient did not receive sepsis bolus on admission, likely due to severe effusion. - He remains tachycardic into the 130s likely due to ongoing infection, given albumin 25% x1. - suspected source: pneumonia vs necrotizing pancreatitis - blood cultures drawn on 09/23: pending - Antibiotics: vancomycin, cefepime, flagyl - UA non concerning for infection - CXR 09/23: Cardiomegaly with cardiac decompensation and pulmonary edema. Bibasilar opacification suggestive of atelectasis versus pneumonia with left pleural effusion - Chest CTA 09/23: No evidence of pulmonary embolus, aortic dissection, or aortic aneurysm. Large bilateral pleural effusions with extensive bilateral atelectasis, especially the lower lobes, as detailed above. Extensive heterogeneous fluid in the upper abdomen, especially left upper quadrant, with extensive infiltration of the mesentery. Etiology is unclear, and is incompletely imaged on the current exam. Diagnostic considerations could include severe pancreatitis versus other etiologies for peritoneal inflammation and fluid. Carcinomatosis/neoplasm is also within the differential diagnosis. - Abdomen/pelvis CT 1. 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 2. Moderate-sized pleural effusions. 3. Groundglass opacities in left lower lobe and lingula, consistent with pneumonia versus focal pulmonary edema. 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 He was transferred from [facility] to [facility]. He was treated for necrotizing pancreatitis and peripancreatic fluid collection, septic shock (septicemia) requiring broad spectrum antibiotics, progressive encephalopathy requiring intubation for respiratory failure on 07/15/24. A tracheostomy was placed 07/25/24. He was transferred to higher level of care at [facility] on 08/04/24, 08/23 Patient admitted to [facility] for ventilator weaning. He has since been decannulated and undergoing therapy at rehab. - Antibiotics: vancomycin, cefepime, Flagyl - CT abdomen/pelvis: 1. 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 2. Moderate-sized pleural effusions. 3. Ground glass opacities in left lower lobe and lingula, consistent with pneumonia versus focal pulmonary edema. - If patients WBC continues to worsen during this admission, may consider paracentesis vs drain placement Call made to Dr. Spangler in regards to patients CT abdomen/pelvis, patient requires transfer to a tertiary facility. If patient is going to be here for a few days pending transfer consult GI. Patient has been accepted at [facility] step down under hospitalist, Dr. Lazo. He was wanting his pleural fluid to be tested for LDH, pH, culture, lipase, and amylase, however patients thoracentesis was not made diagnostic and per US it is out of the window to test. If patient requires another thoracentesis during this admission these labs should be obtained. (4) Pleural effusion: Code(s): J90 - Pleural effusion, not elsewhere classified Status: Acute Assessment and Plan: CXR 09/23: Cardiomegaly with cardiac decompensation and pulmonary edema. Bibasilar opacification suggestive of atelectasis versus pneumonia with left pleural effusion Chest CTA 09/23: No evidence of pulmonary embolus, aortic dissection, or aortic aneurysm. Large bilateral pleural effusions with extensive bilateral atelectasis, especially the lower lobes, as detailed above. Extensive heterogeneous fluid in the upper abdomen, especially left upper quadrant, with extensive infiltration of the mesentery. Etiology is unclear, and is incompletely imaged on the current exam. Diagnostic considerations could include severe pancreatitis versus other etiologies for peritoneal inflammation and fluid. Carcinomatosis/neoplasm is also within the differential diagnosis. CXR 09/24 during rapid response: Stable large left pleural effusion. Stable airspace opacities in right mid and lower lung zones and left lung, consistent with atelectasis versus pneumonia. - Risk Factors: recent hospitalization requiring intubation and tracheostomy - Antibiotics: Zosyn started on 09/23, transitioned to vancomycin and cefepime on 09/24 - Diuretics: Lasix 40 IV daily - Viral PCR: negative for Flu/COVID/RSV - MRSA negative - BNP elevated, Echo ordered - s/p thoracentesis on 09/24 with 900 ml removed. Post thora chest XR shows small left pleural effusion - Requiring 2L NC, resumed BIPAP given severe tachypnea and large pleural effusion. Oxygen wean as tolerated. Keep SpO2 greater than 88% - Monitor vital signs, I&Os, neuro status and patient is a fall risk - Follow WBC, serum electrolytes, temperature curves and cultures Transfer Discharge Sum: Med Medications Active and Home Medications: Home Medications acetaminophen 325 mg tablet 650 mg PO Q6H PRN Fever or Pain (1-4) 09/18/24 [History Confirmed 09/23/24] clonidine HCl 0.1 mg tablet 0.1 mg PO Q12H 09/18/24 [History Confirmed 09/23/24] folic acid 1 mg tablet 1 mg PO DAILY 09/18/24 [History Confirmed 09/23/24] hydroxyzine HCl 10 mg tablet 12.5 mg PO TID PRN Anxiety 09/18/24 [History Confirmed 09/23/24] insulin lispro 100 unit/mL subcutaneous solution See Protocol subcut USEASDIRECTD 09/18/24 [History Confirmed 09/23/24] lipase 10,500-protease 35,500-amylase 61,500 unit capsule,delayed rel (Pancreaze) 2 cap PO AC 09/18/24 [History Confirmed 09/23/24] melatonin 3 mg tablet 9 mg PO HS PRN Insomnia 09/18/24 [History Confirmed 09/23/24] metformin 500 mg tablet 500 mg PO BIDWM 09/18/24 [History Confirmed 09/23/24] metoprolol tartrate 37.5 mg tablet 37.5 mg PO Q12H 09/18/24 [History Confirmed 09/23/24] oxycodone 5 mg tablet 5 mg PO Q4H PRN Pain (5-10) 09/18/24 [History Confirmed 09/23/24] pantoprazole 40 mg tablet,delayed release 40 mg PO DAILY 09/18/24 [History Confirmed 09/23/24] sennosides 8.6 mg tablet 8.6 mg PO DAILY 09/18/24 [History Confirmed 09/23/24] thiamine HCl (vitamin B1) 100 mg tablet 100 mg PO DAILY 09/18/24 [History Confi rmed 09/23/24] enoxaparin 40 mg/0.4 mL subcutaneous syringe 40 mg subcut DAILY 09/23/24 [History Confirmed 09/23/24] gabapentin 300 mg capsule 300 mg PO TID 09/23/24 [History Confirmed 09/23/24] Transfer Discharge Sum: Hosp Hospital Course Hospital course: Kevin Dudley is a 34 year old male. 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 Patient started on alcohol in his late teen and eventually became addicted. Off note: He had a complicated hospitalization starting 07/12/24 at OSH for 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 He was transferred from OSH to [facility]. He was treated for necrotizing pancreatitis and peripancreatic fluid collection, septic shock (septicemia) requiring broad spectrum antibiotics, progressive encephalopathy requiring Intubation for respiratory failure on 07/15/24. A tracheostomy was placed 07/25/24. He was transferred to higher level of care at [facility] on 08/04/24 for necrotizing pancreatitis. 08/23 Patient admitted to [facility]; for ventilator weaning. [facility] and transferred here because of Hypoxia. Call made to Dr. Spangler during current admission in regards to patients CT abdomen/pelvis, patient requires transfer to a tertiary facility. If patient is going to be here for a few days pending transfer consult GI. [facility] accepted at [facility] under hospitalist, Dr. Lazo. He was wanting his pleural fluid to be tested for LDH, pH, culture, lipase, and amylase, however patients thoracentesis was not made diagnostic and per US it is out of the window to test. If patient requires another thoracentesis during this admission these labs should be obtained. Patient is not edematous. Patient has protein malnutrition. Hold lasix for 2 days for volume expansion. Continue albumin q 6 hrs. Need PT /OT. Patient WBC improved. Patient was transferred to [facility] for further evaluation Time Spent with Patient Time attestation: Total time spent providing and/or coordinating transfer services: 45 minute Exam Narrative: AF HR 111 RR 19 SpO2 93 2L NC BP 114/80 General: male in acute respiratory distress who is toxic appearing, lying semi recumbent in bed. HEENT: Normocephalic. Atraumatic. Extraocular movement intact. Sclera clear and anicteric. No facial asymmetry. Chest: Lungs are diminished on the right. Left lung is diminished in the uppers, crackles in the middle and no movement in the base. No wheezes. CV: Heart was tachycardic in regular rhythm. S1/S2. No murmurs, gallops, or rubs. Abd: Abdomen was soft. Nontender. Distended. Positive bowel sounds. No organomegaly or masses. Ext: No clubbing, cyanosis, or edema. 2+ DP pulses bilaterally. Neuro: Patient is alert and oriented x4. Speech is clear. Psych: Normal mood and affect. Patient is pleasant and cooperative. Skin: Warm and dry. No rashes noted. DS: Data Imaging Radiologist's impression: ITS Impressions Chest X-Ray 09/23/24 11:41 IMPRESSION: Cardiomegaly with cardiac decompensation and pulmonary edema. Bibasilar opacification suggestive of atelectasis versus pneumonia with left pleural effusion Chest CTA 09/23/24 13:29 Impression: No evidence of pulmonary embolus, aortic dissection, or aortic aneurysm. Large bilateral pleural effusions with extensive bilateral atelectasis, especially the lower lobes, as detailed above. Extensive heterogeneous fluid in the upper abdomen, especially left upper quadrant, with extensive infiltration of the mesentery. Etiology is unclear, and is incompletely imaged on the current exam. Diagnostic considerations could include severe pancreatitis versus other etiologies for peritoneal inflammation and fluid. Carcinomatosis/neoplasm is also within the differential diagnosis. Correlate with any relevant clinical history an prior workup. Dedicated abdominal pelvic CT scan with contrast should be strongly considered to further evaluate. Chest X-Ray 09/24/24 07:49 IMPRESSION: 1. Stable large left pleural effusion. 2. Stable airspace opacities in right mid and lower lung zones and left lung, consistent with atelectasis versus pneumonia. Thoracentesis Ultrasound 09/24/24 10:27 IMPRESSION: 1. Successful ultrasound-guided thoracentesis yielding 900 mL of ely-colored fluid. Chest X-Ray 09/24/24 10:39 IMPRESSION: 1. Small left pleural effusion with improvement status post thoracentesis. 2. Airspace opacities in the mid and lower lung zones with improvement on the left, consistent with atelectasis versus pneumonia. Abdomen CT 09/24/24 13:38 IMPRESSION: 1. 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 2. Moderate-sized pleural effusions. 3. Groundglass opacities in left lower lobe and lingula, consistent with pneumonia versus focal pulmonary edema.
== END 2024-09-28 20:30 | disposition short-term general hospital (02) | DRG 871 ==
LOC: ANHED 12:06 → ANH3MEDSUR 16:03 → ANH3MED 17:37 → ANHICU 09-24 09:43 → ANH3MED 09-30 15:06 → ANHIMU 09-30 15:06
PROVIDERS: Internal Medicine; Nurse Practitioner Acute Care; Nurse Practitioner Gerontology; Physician Assistant; Student in an Organized Health Care Education/Training Program; Admitting Provider Internal Medicine; Emergency Provider Student in an Organized Health Care Education/Training Program; Visit Provider General Practice
DX: A41.9 Sepsis, unspecified organism (principal); J96.01 Acute respiratory failure with hypoxia; K85.91 Acute pancreatitis with uninfected necrosis, unspecified; J90 Pleural effusion, not elsewhere classified; E46 Unspecified protein-calorie malnutrition; I50.9 Heart failure, unspecified; D64.9 Anemia, unspecified; F10.11 Alcohol abuse, in remission; Z20.822 Contact with and (suspected) exposure to COVID-19
CPT/HCPCS: 32555; 36415; 36600; 71045; 71275; 74160; 80053; 80202; 81003; 82805; 82948; 83605; 83690; 83735; 83880; 84132; 84145; 84484; 85018; 85025; 85610; 85730; 86140; 87040; 87637; 87641; 93005; 93306; 96374; 97110; 97116; 97161; 97165; 97530; 97535; 99285; A9270; J0692; J1836; J1940; J2405; J2470; J2543; J3370; J3475; J3480; J7030; J7040; P9047; Q9967